=== PATIENT | female | born 1935 | race Caucasian/White ===

== ENCOUNTER 2017-08-12 11:59 | Emergency (ER) | payer MEDICARE, BC ==
[~2017-08-12] VITALS: Ht 154.9 cm; Wt 82.6 kg
[2017-08-12] MEDS ORDERED: Ketorolac 60mg Inj IM ONE (12:15)
--- NOTE | 2017-08-12 12:27 | Emergency Room Report ---
History of Present Illness General Chief Complaint: Pain Source: Patient Present Illness HPI 82-year-old female presents to the emergency department complaining of 7/10 in severity localized left hip pain progressive x3 days. Patient reports history of sciatica times several years and states that her current presentation is consistent with previous episodes of sciatica exacerbation. Patient states that she is usually treated with tramadol and an injection. Patient states that she has some time at all at home however she would like to have an injection for her pain. Patient rates her pain a 7 out of time and it is localized it does not radiate she denies weakness in the extremities she reports pain is exacerbated upon ambulation or touching the affected area. Patient denies recent spinal procedures, history of neoplastic disease, fevers, chills, trauma or fall. Denies numbness tingling or loss of sensation or gross motor movements of the extremities, incontinence of bowel or bladder. Denies CP , Palpitations, LOC, AMS, dizziness, Changes in Vision, Sensation, paresthesias , or a sudden severe headache. Allergies: Coded Allergies: No Known Allergies (Unverified , 08/12/17) Patient History Past Medical History: see triage record Past Surgical History: none Pertinent Family History: none Reviewed Nursing Documentation: PMH: Agreed, PSxH: Agreed Nursing Documentation-PMH Hx Hypertension: Yes Hx Diabetes: Yes Review of Systems All Other Systems: negative except mentioned in HPI Physical Exam Vital Signs Date Time Temp Pulse Resp B/P (MAP) Pulse Ox O2 Delivery O2 Flow Rate FiO2 08/12/17 12:03 97.9 80 18 169/76 98 Room Air Sp02 EP Interpretation: reviewed, normal General Appearance: no apparent distress, alert, GCS 15, non-toxic Head: normocephalic, atraumatic Eyes: bilateral eye normal inspection, bilateral eye PERRL ENT: hearing grossly normal, normal voice Neck: full range of motion, no meningismus, no bony tend Respiratory: lungs clear, normal breath sounds, speaking full sentences Cardiovascular #1: regular rate, rhythm Gastrointestinal: normal bowel sounds, non tender, soft, no pulsatile mass Genitourinary: normal inspection, no CVA tenderness Musculoskeletal: back normal, normal range of motion, other - pt. has mild compensatory gait favoring the left side. , tender - TTP to the upper left gluteus and left lumbar paraspinal musculature, no midline ttp, no bony ttp to the left hip. pt. has FROM of the left hip and is NVI Neurologic: alert, oriented x3, responsive, motor strength/tone normal, sensory intact, speech normal, grossly normal Reflexes: 2+ knee (R), 2+ knee (L) Skin: normal color, no rash, warm/dry, well hydrated Medical Decision Making PA Attestation Dr. Armenta is my supervising Physician whom patient management has been discussed with. Diagnostic Impression: Primary Impression: Left-sided back pain Qualified Codes: M54.5 - Low back pain; G89.29 - Other chronic pain ER Course 82-year-old female presents to the emergency department complaining of 7/10 in severity localized left hip pain progressive x3 days. Patient reports history of sciatica times several years and states that her current presentation is consistent with previous episodes of sciatica exacerbation. Patient states that she is usually treated with tramadol and an injection. Patient states that she has some time at all at home however she would like to have an injection for her pain. Patient rates her pain a 7 out of time and it is localized it does not radiate she denies weakness in the extremities she reports pain is exacerbated upon ambulation or touching the affected area. Patient denies recent spinal procedures, history of neoplastic disease, fevers, chills, trauma or fall. Denies numbness tingling or loss of sensation or gross motor movements of the extremities, incontinence of bowel or bladder. Denies CP , Palpitations, LOC, AMS, dizziness, Changes in Vision, Sensation, paresthesias , or a sudden severe headache. Ddx considered but are not limited to Fracture, dislocation, contusion, epidural abscess, Sprain/Strain/Spasm Vital signs: are WNL, pt. is afebrile H&PE are most consistent with hx of episodic sciatica exacerbation. ORDERS: X-ray not required at this time, no spinous process tenderness ED INTERVENTIONS: IM Toradol 20mg. -750mg Robaxin PO [ ] Re-Evaluation: pt. states her pain has subsided with ED interventions DISCHARGE: At this time pt. is stable for d/c to home. Will provide printed patient care instructions, and any necessary prescriptions. Care plan and follow up instructions have been discussed with the patient prior to discharge. Last Vital Signs Date Time Temp Pulse Resp B/P (MAP) Pulse Ox O2 Delivery O2 Flow Rate FiO2 12/24/17 12:03 97.9 80 18 169/76 98 Room Air Disposition: HOME, SELF-CARE Condition: Stable Scripts Lidocaine (Lidoderm) 1 Each Adh..patch 1 PATCH TOPIC DAILY, #25 PATCH 0 Refills Patch(es) may remain in place for up to 12 hours in any 24-hour period. Prov: Anastasia Maldonado 08/12/17 Methocarbamol* (ROBAXIN-750*) 750 Mg Tablet 750 MG PO QID for 7 Days, #28 TAB 0 Refills Prov: Anastasia Maldonado 08/12/17 Patient Instructions: Back Pain, Adult, Sciatica, [id number] Additional Instructions: Take medications as directed. Follow up with a Primary Care Provider in 3-5 days, even if your symptoms have resolved. --Please review list of primary care clinics, if you do not already have a primary care provider Return sooner to ED if new symptoms occur, or current symptoms become worse. Do not drink alcohol, drive, or operate heavy machinery while taking Robaxin as this may cause drowsiness. - Please note that this Emergency Department Report was dictated using [employer] fruit [employer] technology software, occasionally this can lead to erroneous entry secondary to interpretation by the dictation equipment. Anastasia Maldonado Aug 12, 2017 12:27
[2017-08-12] MEDS ORDERED: Methocarbamol 750mg tab ORAL ONE (12:30)
[2017-08-12] MEDS ORDERED: ROBAXIN-750750 MG PO (12:51)
[2017-08-12] MEDS ORDERED: LIDODERM700 M1 TOPIC (12:51)
[2017-08-12 12:59] VITALS: BP 142/80
== END 2017-08-12 12:59 | disposition home or self-care (01) ==
LOC: EMR 12:05
DX: M54.5 Low back pain (principal); G89.29 Other chronic pain; M25.552 Pain in left hip; I10 Essential (primary) hypertension; E11.9 Type 2 diabetes mellitus without complications
CPT/HCPCS: 96372; 99284

== ENCOUNTER 2017-10-04 11:14 | Inpatient (IN) | payer MEDICARE, BC ==
[~2017-10-04] VITALS: Ht 154.9 cm; Wt 82.6 kg
[~2017-10-04 11:14] MED LIST: LIDODERM700 M1 TOPIC; ROBAXIN-750750 MG PO
[2017-10-04 11:23] VITALS: BP 159/66
[2017-10-04 11:58] LABS: BASOPHILS % (AUTO) 0.4 % (0.0-2.0); EOSINOPHILS % (AUTO) 0.1 % (0.0-3.0); HEMATOCRIT 38.3 % (37.0-47.0); HEMOGLOBIN 12.3 G/DL (12.0-16.0); LYMPHOCYTES % (AUTO) 16.6 % (20.0-45.0); MEAN CORPUSCULAR VOLUME 83 FL (80-99); MONOCYTES % (AUTO) 7.4 % (1.0-10.0); NEUTROPHILS % (AUTO) 75.4 % (45.0-75.0); PLATELET COUNT 200 K/UL (150-450); RED BLOOD COUNT 4.63 M/UL (4.20-5.40); RED CELL DISTRIBUTION WIDTH 13.7 % (11.6-14.8); WHITE BLOOD COUNT 4.6 K/UL (4.8-10.8)
[2017-10-04 12:03] LABS: APPEARANCE,URINE CLOUDY; BILIRUBIN, URINE NEGATIVE (NEGATIVE); COLOR,URINE YELLOW; GLUCOSE, URINE (UA) NEGATIVE (NEGATIVE); KETONES,URINE 1+ (NEGATIVE); LEUKOCYTE ESTERASE ,URINE 2+ (NEGATIVE); NITRITE,URINE POSITIVE (NEGATIVE); PH,URINE 6 (4.5-8.0); PROTEIN,URINE 3+ (NEGATIVE); UROBILINOGEN,URINE NORMAL MG/DL (0.0-1.0)
[2017-10-04 12:05] LABS: ANION GAP 9 mmol/L (5-15); BLOOD UREA NITROGEN 10 mg/dL (7-18); CARBON DIOXIDE 26 MMOL/L (21-32); CHLORIDE 101 MMOL/L (98-107); CREATININE 1.3 MG/DL (0.55-1.30); POTASSIUM 3.7 MMOL/L (3.5-5.1); SODIUM 136 MMOL/L (136-145)
[2017-10-04 12:18] LABS: ALANINE AMINOTRANSFERASE 99 U/L (12-78); ALBUMIN 3.3 G/DL (3.4-5.0); ALBUMIN/GLOBULIN RATIO 0.8 (1.0-2.7); ALKALINE PHOSPHATASE 62 U/L (46-116); ASPARTATE AMINO TRANSFERASE 61 U/L (15-37); BILIRUBIN,TOTAL 0.3 MG/DL (0.2-1.0); CKMB < 0.5 NG/ML (0.0-3.6); CREATINE KINASE 32 U/L (26-308)
--- NOTE | 2017-10-04 13:02 | Emergency Room Report ---
History of Present Illness General Chief Complaint: Dyspnea/Respdistress Source: Patient Present Illness HPI [id number] Walk-in with 2-3 days of SOB and cough No myalgias No sick contacts Got flu vaccine, not PNA vaccine Allergies: Coded Allergies: No Known Allergies (Unverified , 08/12/17) Patient History Past Medical History: see triage record, old chart reviewed Past Surgical History: none Pertinent Family History: none Social History: Denies: smoking, alcohol use, drug use Last Menstrual Period: NA Now: No Immunizations: UTD Reviewed Nursing Documentation: PMH: Agreed, PSxH: Agreed Nursing Documentation-PMH Hx Hypertension: Yes Hx Diabetes: Yes Review of Systems All Other Systems: negative except mentioned in HPI Physical Exam Vital Signs Date Time Temp Pulse Resp B/P (MAP) Pulse Ox O2 Delivery O2 Flow Rate FiO2 10/04/17 11:20 98.9 74 19 159/66 98 Room Air 99.0 Sp02 EP Interpretation: reviewed, normal General Appearance: normal inspection, well appearing, no apparent distress, alert, GCS 15, non-toxic Head: normocephalic, atraumatic Eyes: bilateral eye PERRL, bilateral eye EOMI ENT: normal ENT inspection, hearing grossly normal, normal pharynx, no angioedema, normal voice, TMs + canals normal, uvula midline, moist mucus membranes Neck: normal inspection, full range of motion, supple, thyroid normal, no meningismus, no bony tend Respiratory: normal inspection, no respiratory distress, no retraction, no accessory muscle use, rhonchi, speaking full sentences, other - Rhonchi left side of lungs Cardiovascular #1: regular rate, rhythm, no edema, no JVD, normal capillary refill Gastrointestinal: normal inspection, normal bowel sounds, non tender, soft, no mass, no peritonitis, non-distended, no guarding, no hernia, no pulsatile mass Genitourinary: no CVA tenderness Musculoskeletal: normal inspection, back normal, normal range of motion, no calf tenderness, pelvis stable, Vandana's Sign negative Neurologic: normal inspection, alert, oriented x3, responsive, combination machine tool setter III-XII nml as tested, motor strength/tone normal, cerebellar normal, normal gait, speech normal Psychiatric: normal inspection, judgement/insight normal, mood/affect normal, no suicidal/homicidal ideation, no delusions Skin: normal inspection, normal color, no rash Lymphatic: normal inspection, no adenopathy Medical Decision Making Diagnostic Impression: Primary Impression: SOB (shortness of breath) Additional Impressions: Pneumonia Qualified Codes: J18.9 - Pneumonia, unspecified organism UTI (urinary tract infection) Qualified Codes: N30.01 - Acute cystitis with hematuria Elevated troponin ER Course Clinical PNA with cough, rhonchi on exam however CXR negative for PNA Nitrite Positive UTI Blood, Urine Cx pending Empiric Levaquin given in ED Elevated trop 0.074. Will give ASA as well Needs admission for ?PNA/UTI, ACS rule out Endorsed to Dr Mues covering for Darrion at 100pm Tele bed EKG Diagnostic Results Rate: normal Rhythm: NSR ST Segments: no acute changes ASA given to the pt in ED: No Rhythm Strip Diag. Results EP Interpretation: yes Rate: 68 Rhythm: NSR, no PVC's, no ectopy Chest X-Ray Diagnostic Results Chest X-Ray Diagnostic Results : Chest X-Ray Ordered: Yes # of Views/Limited/Complete: 1 View Indication: Shortness of Breath EP Interpretation: Yes Interpretation: no consolidation, no effusion, no pneumothorax, no acute cardiopulmonary disease Impression: No acute disease Electronically Signed by: Dr Weston Teresa MD Last Vital Signs Date Time Temp Pulse Resp B/P (MAP) Pulse Ox O2 Delivery O2 Flow Rate FiO2 10/04/17 11:24 73 19 Room Air 10/04/17 11:23 98.9 159/66 98 98.9 Status: improved Disposition: ADMITTED INPATIENT Condition: Serious Referrals: DAPHNE COTA (PCP) WESTON TERESA M.D. Oct 04, 2017 13:01
--- NOTE | 2017-10-04 13:03 | Diagnostic Imaging Report ---
Indication: Dyspnea Comparison: None A single view chest radiograph was obtained. Findings: No definite infiltrate or pulmonary vascular congestion identified. The heart is enlarged. The aorta is mildly enlarged consistent with atherosclerotic vascular disease. The bones are osteopenic. Impression: No acute disease
[2017-10-04 13:30] VITALS: BP 158/64
--- NOTE | 2017-10-04 14:12 | History and Physical ---
History of Present Illness General Date patient seen: Oct 04, 2017 Reason for Hospitalization: Dyspnea/Respdistress Present Illness HPI 82 yo female with pmhx HTN, DM II, and dyslipidemia presents to [facility] with complaint of severe purulent cough and chest discomfort. Patient has been given supplemental oxygen and a cardiology consultation has been requested to evaluate. The patient also started on empiric broad spectrum antibiotics for her purulent cough and bacteria collected in the urine. No complaint of shortness of breath or chest pain. No recent illness reported or focality. Allergies: Coded Allergies: No Known Allergies (Unverified , 08/12/17) Medication History Scheduled Albuterol Sulfate* (Proair Hfa*), 1 PUFF INH Q6H Amiodarone Hcl* (Amiodarone Hcl*), 200 MG ORAL DAILY, (Reported) Amlodipine Besylate* (Amlodipine Besylate*), 5 MG ORAL DAILY, (Reported) Apixaban (Eliquis), 5 MG ORAL BID, (Reported) Benzonatate* (Benzonatate*), 100 MG ORAL THREE TIMES A DAY Budesonide/Formoterol Fumarate (Symbicort 160-4.5 Mcg Inhaler), 1 PUFF INH TWICE A DAY Levofloxacin* (Levaquin*), 250 MG ORAL DAILY Lidocaine (Lidoderm), 1 PATCH TOPIC DAILY Metformin Hcl* (Metformin Hcl*), 500 MG ORAL DAILY, (Reported) Methocarbamol* (Robaxin-750*), 750 MG PO QID Rosuvastatin Calcium* (Crestor*), 5 MG ORAL DAILY, (Reported) Sitagliptin Phos/Metformin Hcl (Janumet 50-500 Mg Tablet), 1 TAB ORAL DAILY, ( Reported) Scheduled PRN Gabapentin* (Gabapentin*), 100 MG ORAL THREE TIMES A DAY PRN for For Pain, ( Reported) Tramadol Hcl* (Ultram*), 50 MG ORAL Q6H PRN for For Pain, (Reported) Patient History Healthcare decision maker Resuscitation status Advanced Directive on File Review of Systems Constitutional: Reports: malaise, weakness Respiratory: Reports: cough, shortness of breath, wheezing, sputum Cardiovascular: Reports: chest pain Physical Exam General Appearance: moderate distress Lines, tubes and drains: peripheral HEENT: normocephalic, atraumatic, anicteric, PERRL Neck: non-tender, normal alignment, supple, normal inspection Respiratory/Chest: chest wall non-tender, decreased breath sounds, rhonchi - bilaterally Breasts: no masses Cardiovascular/Chest: normal peripheral pulses, normal rate, regular rhythm, no JVD Abdomen: normal bowel sounds, non tender, soft, no organomegaly, no mass Genitourinary/Rectal: normal genital exam, normal rectal exam Extremities: normal range of motion, non-tender, normal inspection, no calf tenderness Skin Exam: normal pigmentation, warm/dry Neurologic: healthcare specialist II-XII grossly normal, no motor/sensory deficits Last 24 Hour Vital Signs Date Time Temp Pulse Resp B/P (MAP) Pulse Ox O2 Delivery O2 Flow Rate FiO2 10/04/17 11:24 73 19 Room Air 10/04/17 11:23 98.9 73 19 159/66 98 Room Air 98.9 10/04/17 11:20 98.9 74 19 159/66 98 Room Air 99.0 Laboratory Tests Test 10/04/17 11:10 10/04/17 11:37 Urine Color Yellow Urine Appearance Cloudy Urine pH 6 (4.5-8.0) Urine Specific [place] 1.010 (1.005-1.035) Urine Protein 3+ (NEGATIVE) H Urine Glucose (UA) Negative (NEGATIVE) Urine Ketones 1+ (NEGATIVE) H Urine Occult Blood 2+ (NEGATIVE) H Urine Nitrite Positive (NEGATIVE) H Urine Bilirubin Negative (NEGATIVE) Urine Urobilinogen Normal MG/DL (0.0-1.0) Urine Leukocyte Esterase 2+ (NEGATIVE) H Urine RBC 2-4 /HPF (0 - 2) H Urine WBC 5-10 /HPF (0 - 2) H Urine Squamous Epithelial Cells Few /LPF (NONE/OCC) Urine Bacteria Many /HPF (NONE) H White Blood Count 4.6 K/UL (4.8-10.8) L Red Blood Count 4.63 M/UL (4.20-5.40) Hemoglobin 12.3 G/DL (12.0-16.0) Hematocrit 38.3 % (37.0-47.0) Mean Corpuscular Volume 83 FL (80-99) Mean Corpuscular Hemoglobin 26.6 PG (27.0-31.0) L Mean Corpuscular Hemoglobin Concent 32.1 G/DL (32.0-36.0) Red Cell Distribution Width 13.7 % (11.6-14.8) Platelet Count 200 K/UL (150-450) Mean Platelet Volume 7.9 FL (6.5-10.1) Neutrophils (%) (Auto) 75.4 % (45.0-75.0) H Lymphocytes (%) (Auto) 16.6 % (20.0-45.0) L Monocytes (%) (Auto) 7.4 % (1.0-10.0) Eosinophils (%) (Auto) 0.1 % (0.0-3.0) Basophils (%) (Auto) 0.4 % (0.0-2.0) Sodium Level 136 MMOL/L (136-145) Potassium Level 3.7 MMOL/L (3.5-5.1) Chloride Level 101 MMOL/L (98-107) Carbon Dioxide Level 26 MMOL/L (21-32) Anion Gap 9 mmol/L (5-15) Blood Urea Nitrogen 10 mg/dL (7-18) Creatinine 1.3 MG/DL (0.55-1.30) Estimat Glomerular Filtration Rate mL/min (>60) Glucose Level 157 MG/DL (74-106) H Calcium Level 9.0 MG/DL (8.5-10.1) Total Bilirubin 0.3 MG/DL (0.2-1.0) Aspartate Amino Transf (AST/SGOT) 61 U/L (15-37) H Alanine Aminotransferase (ALT/SGPT) 99 U/L (12-78) H Alkaline Phosphatase 62 U/L (46-116) Total Creatine Kinase 32 U/L (26-308) Creatine Kinase MB < 0.5 NG/ML (0.0-3.6) Creatine Kinase MB Relative Index 1.5 Troponin I 0.074 ng/mL (0.000-0.056) Total Protein 7.7 G/DL (6.4-8.2) Albumin 3.3 G/DL (3.4-5.0) L Globulin 4.4 g/dL Albumin/Globulin Ratio 0.8 (1.0-2.7) L Microbiology Date/Time Source Procedure Growth Status 10/04/17 11:40 Nasal Nares Influenza Types A,B Antigen (BRANDY) - Final Complete Height (Feet): 5 Height (Inches): 1.00 Weight (Pounds): 182 Medications Current Medications Medications (Trade) Dose Ordered Sig/Esa Route PRN Reason Start Time Stop Time Status Last Admin Dose Admin Aspirin (Ecotrin) 325 mg DAILY ORAL 10/05/17 09:00 11/04/17 08:59 Levofloxacin 150 ml @ 100 mls/hr NOW ONCE IVPB 10/04/17 12:45 10/04/17 14:14 10/04/17 13:45 Assessment/Plan Status: stable, progressing Assessment/Plan Acute bronchitis Chest discomfort rule out ACS Urinary tract infection with bacteriuria DM HTN History of paroxysmal atrial fibrillation PLAN Oxygenation supplemental titrate FiO2 up maintain O2 sat above 92 % Nitroglycerine as needed for CP ASA Morphine as needed for CP Cardiology requested to consult Empiric abx, Influenza screening ID follows Antitussive prn Lipid panel and TSH BEBETO MEJIA Oct 04, 2017 14:12
[2017-10-04] MEDS ORDERED: dilTIAZem HCl 25mg/5ml Inj IV PRN (14:15)
[2017-10-04] MEDS ORDERED: Enalaprilat 2.5mg/2ml Inj IV PRN (14:15)
[2017-10-04] MEDS ORDERED: Ketorolac 30mg Inj IV PRN (14:15)
[2017-10-04] MEDS ORDERED: Albuterol/Ipratropium 3ml neb HHN PRN (14:15)
[2017-10-04] MEDS ORDERED: Morphine Sulfate 2mg/ml Inj IVP PRN (14:15)
[2017-10-04] MEDS ORDERED: Nitroglycerin Subl 0.4mg tab SL PRN (14:15)
[2017-10-04] MEDS ORDERED: Miralax 17gm pkt ORAL PRN (14:15)
[2017-10-04] MEDS ORDERED: Promethazine/Codeine 5ml UD ORAL PRN (14:15)
[2017-10-04] MEDS ORDERED: AMLODIPINE BESYL5 MG ORAL (14:33)
[2017-10-04] MEDS ORDERED: AMIODARONE HCL400 M1 ORAL (14:33)
[2017-10-04] MEDS ORDERED: ELIQUIS5 MG ORAL (14:33)
[2017-10-04] MEDS ORDERED: METFORMIN HCL500 M1 ORAL (14:35)
[2017-10-04] MEDS ORDERED: GABAPENTIN100 MG ORAL (14:35)
[2017-10-04] MEDS ORDERED: CRESTOR10 M2 ORAL (14:35)
[2017-10-04] MEDS ORDERED: TRAMADOL HCL50 MG ORAL (14:35)
[2017-10-04] MEDS ORDERED: JANUMET 50-5001 EACH ORAL (14:35)
[2017-10-04 15:30] VITALS: BP 129/104
[2017-10-04 16:29] VITALS: BP 137/94
[2017-10-04] MEDS ORDERED: Methocarbamol 750mg tab ORAL PRN (18:00)
[2017-10-04 19:30] VITALS: BP 164/73
[2017-10-04] MEDS: Heparin 5000 units/ml inj SUBQ SCH (21:00)
[2017-10-04] MEDS: Piperacillin/Tazobactam 3.375 GM in NS 110 ML IVPB SCH (22:54)
[2017-10-05] VITALS: BP 121/78
[2017-10-05 04:00] VITALS: BP 132/79
[2017-10-05] MEDS: Piperacillin/Tazobactam 3.375 GM in NS 110 ML IVPB SCH (05:56)
[2017-10-05 07:02] LABS: INR 1.1 (0.9-1.1)
[2017-10-05 07:09] LABS: CHOLESTEROL 129 MG/DL (< 200); HDL CHOLESTEROL 46 MG/DL (40-60); TRIGLYCERIDES 130 MG/DL (30-150)
[2017-10-05 07:29] LABS: BASOPHILS % (AUTO) 0.6 % (0.0-2.0); EOSINOPHILS % (AUTO) 0.3 % (0.0-3.0); HEMATOCRIT 36.7 % (37.0-47.0); LYMPHOCYTES % (AUTO) 36.8 % (20.0-45.0); MEAN CORPUSCULAR VOLUME 83 FL (80-99); MONOCYTES % (AUTO) 13.1 % (1.0-10.0); NEUTROPHILS % (AUTO) 49.2 % (45.0-75.0); PLATELET COUNT 203 K/UL (150-450); RED BLOOD COUNT 4.41 M/UL (4.20-5.40); RED CELL DISTRIBUTION WIDTH 13.8 % (11.6-14.8); WHITE BLOOD COUNT 4.3 K/UL (4.8-10.8)
[2017-10-05 08:00] VITALS: BP 160/68
--- NOTE | 2017-10-05 08:22 | Pulmonology Progress Note ---
Assessment/Plan Assessment/Plan ASSESSMENT Elevated troponin, r/o ACS Acute bronchitis UTI with GNB DM HTN elevated LFT PAF PLAN OF CARE Tele serial troponin ECG ECHO cardio eval ASA O2 HHN ATC and prn Fup with CXR in am empiric abx, fup with cx ID follows urine cx + GNB a/tussive prn BP management with CCB and optimize as needed BS management with Januviz, hold metformin creat slightly up DVT prophylaxis lipid panel and TSH stable , check HgA1c Currently in SR,resume a/c with Eliquis and Amiodarone case discussed and evaluated by supervising physician Subjective Allergies: Coded Allergies: No Known Allergies (Unverified , 08/12/17) Subjective afebrile, no leucocytosis, reports cough, mainly nonproductive, no wheezing, no hemoptysis no hx of asthma,no smoking similar episode x 1 few years ago ; was in inhaler and nasal spray , helped denies chest pain, shortness of breath on RA pulse ox stable Objective Last 24 Hour Vital Signs Date Time Temp Pulse Resp B/P (MAP) Pulse Ox O2 Delivery O2 Flow Rate FiO2 10/05/17 04:00 98.1 77 19 132/79 97 Room Air 10/05/17 04:00 62 10/05/17 00:00 57 10/05/17 00:00 97.7 73 18 121/78 96 Room Air 10/04/17 19:57 66 18 164/73 98 Room Air 10/04/17 19:30 66 18 164/73 98 Room Air 10/04/17 16:29 63 15 137/94 96 Room Air 10/04/17 15:30 70 19 129/104 96 Room Air 10/04/17 13:30 68 19 158/64 96 Room Air 10/04/17 11:24 73 19 Room Air 10/04/17 11:23 98.9 73 19 159/66 98 Room Air 98.9 10/04/17 11:20 98.9 74 19 159/66 98 Room Air 99.0 Intake and Output 10/04/17 10/05/17 19:00 07:00 Intake Total 150 ml 30 ml Output Total 400 ml Balance 150 ml -370 ml Intake Oral 30 ml IV Total 150 ml Output Urine Total 400 ml General Appearance: no acute distress, other - A/A/O x 4 Uzbek speaking elderly female in NAD HEENT: normocephalic, atraumatic, anicteric, mucous membranes moist Respiratory/Chest: lungs clear, no respiratory distress, no accessory muscle use Cardiovascular: normal rate - SR on tele , regular rhythm Abdomen: normal bowel sounds, soft, non tender - obese Extremities: no edema Skin: rash Neurologic/Psychiatric: no motor/sensory deficits, alert, oriented x 3, responsive Musculoskeletal: normal muscle bulk Microbiology Date/Time Source Procedure Growth Status 10/04/17 11:40 Nasal Nares Influenza Types A,B Antigen (BRANDY) - Final Complete Laboratory Tests 10/04/17 11:10: Urine Color Yellow, Urine Appearance Cloudy, Urine pH 6, Urine Specific [place] 1.010, Urine Protein 3+H, Urine Glucose (UA) Negative, Urine Ketones 1+H, Urine Occult Blood 2+H, Urine Nitrite PositiveH, Urine Bilirubin Negative, Urine Urobilinogen Normal, Urine Leukocyte Esterase 2+H, Urine RBC 2-4H, Urine WBC 5- 10H, Urine Squamous Epithelial Cells Few, Urine Bacteria ManyH 10/04/17 11:37: White Blood Count 4.6L, Red Blood Count 4.63, Hemoglobin 12.3, Hematocrit 38.3, Mean Corpuscular Volume 83, Mean Corpuscular Hemoglobin 26.6L, Mean Corpuscular Hemoglobin Concent 32.1, Red Cell Distribution Width 13.7, Platelet Count 200, Mean Platelet Volume 7.9, Neutrophils (%) (Auto) 75.4H, Lymphocytes (%) (Auto) 16.6L, Monocytes (%) (Auto) 7.4, Eosinophils (%) (Auto) 0.1, Basophils (%) (Auto ) 0.4, Sodium Level 136, Potassium Level 3.7, Chloride Level 101, Carbon Dioxide Level 26, Anion Gap 9, Blood Urea Nitrogen 10, Creatinine 1.3, Estimat Glomerular Filtration Rate , Glucose Level 157H, Calcium Level 9.0, Total Bilirubin 0.3, Aspartate Amino Transf (AST/SGOT) 61H, Alanine Aminotransferase ( ALT/SGPT) 99H, Alkaline Phosphatase 62, Total Creatine Kinase 32, Creatine Kinase MB < 0.5, Creatine Kinase MB Relative Index 1.5, Troponin I 0.074H, Total Protein 7.7, Albumin 3.3L, Globulin 4.4, Albumin/Globulin Ratio 0.8L 10/05/17 06:15: White Blood Count 4.3L, Red Blood Count 4.41, Hemoglobin 12.0, Hematocrit 36.7L , Mean Corpuscular Volume 83, Mean Corpuscular Hemoglobin 27.2, Mean Corpuscular Hemoglobin Concent 32.6, Red Cell Distribution Width 13.8, Platelet Count 203, Mean Platelet Volume 7.5, Neutrophils (%) (Auto) 49.2, Lymphocytes (% ) (Auto) 36.8, Monocytes (%) (Auto) 13.1H, Eosinophils (%) (Auto) 0.3, Basophils (%) (Auto) 0.6, Troponin I 0.094H, Prothrombin Time 11.2, Prothromb Time International Ratio 1.1, Activated Partial Thromboplast Time 33, C- Reactive Protein, Quantitative 1.3H, Triglycerides Level 130, Cholesterol Level 129, LDL Cholesterol 73, HDL Cholesterol 46, Cholesterol/HDL Ratio 2.8L, Thyroid Stimulating Hormone (TSH) 1.503 Current Medications Medications (Trade) Dose Ordered Sig/Esa Route PRN Reason Start Time Stop Time Status Last Admin Dose Admin Acetaminophen (Tylenol) 650 mg Q4H PRN ORAL fever (temp>100.5F) 10/04/17 14:15 11/03/17 14:14 Albuterol/ Ipratropium (Albuterol/ Ipratropium) 3 ml Q4H PRN HHN Shortness of Breath 10/04/17 14:15 10/09/17 14:14 Amlodipine Besylate (Norvasc) 5 mg DAILY ORAL 10/05/17 09:00 11/04/17 08:59 Aspirin (ASA) 162 mg DAILY ORAL 10/05/17 09:00 11/04/17 08:59 Aspirin (Ecotrin) 325 mg DAILY ORAL 10/05/17 09:00 11/04/17 08:59 Diltiazem HCl (Cardizem) 10 mg EVERY HOUR PRN IV heart rate more than 120 bpm 10/04/17 14:15 11/03/17 14:14 Enalaprilat (Vasotec) 2.5 mg Q5H PRN IV sbp more than 160 mmHg 10/04/17 14:15 11/03/17 14:14 Heparin Sodium (Porcine) (Heparin 5000 units/ml) 5,000 units EVERY 12 HOURS SUBQ 10/04/17 21:00 11/03/17 20:59 Metformin HCl (Glucophage) 500 mg DAILY ORAL 10/05/17 09:00 11/04/17 08:59 Methocarbamol (Robaxin) 750 mg Q6H PRN ORAL Muscle spasms 10/04/17 18:00 11/03/17 17:59 Morphine Sulfate (Morphine Sulfate) 2 mg Q4H PRN IVP severe Pain (Pain Scale 7-10) 10/04/17 14:15 10/11/17 14:14 Nitroglycerin (Ntg) 0.4 mg Q5M PRN SL Prn Chest Pain 10/04/17 14:15 11/03/17 14:14 Ondansetron HCl (Zofran) 4 mg Q6H PRN IVP Nausea & Vomiting 10/04/17 14:15 11/03/17 14:14 Piperacillin Sod/ Tazobactam Sod 3.375 gm/Sodium Chloride 110 ml @ 220 mls/hr EVERY 8 HOURS IVPB 10/04/17 20:00 10/11/17 19:59 10/05/17 05:56 Polyethylene Glycol (Miralax) 17 gm DAILYPRN PRN ORAL Constipation 10/04/17 14:15 11/03/17 14:14 10/05/17 05:56 Promethazine HCl/ Codeine (Phenergan with Codeine) 5 ml Q4H PRN ORAL For Cough 10/04/17 14:15 11/03/17 14:14 Temazepam (Restoril) 15 mg HSPRN PRN ORAL Insomnia 10/04/17 14:15 10/11/17 14:14 10/04/17 22:53 Rashi WestPeace vale NP Oct 05, 2017 08:22
[2017-10-05] MEDS ORDERED: Aspirin EC 325mg tab ORAL SCH (09:00)
[2017-10-05] MEDS ORDERED: metFORMIN 500mg tab ORAL SCH (09:00)
[2017-10-05] MEDS: Heparin 5000 units/ml inj SUBQ SCH (09:00)
[2017-10-05] MEDS: Aspirin Baby 81mg ORAL SCH (09:20)
[2017-10-05] MEDS ORDERED: Albuterol/Ipratropium 3ml neb HHN SCH (10:00)
[2017-10-05] MEDS ORDERED: sitaGLIPtin 50mg tab ORAL SCH (10:00)
--- NOTE | 2017-10-05 10:21 | Consultation ---
History of Present Illness General Date patient seen: Oct 05, 2017 Time patient seen: 10:17 Chief Complaint: Dyspnea/Respdistress Present Illness HPI 82 y/o F with hx of HTN, DM2 presents to ED on 10/04 with 3 weeks of worsening SOB and dry cough. Took a course of Z-pack. One episode of fever of 38.8 last week. Denies sick contacts, myalgias, runny nose, rash, dysuria, pelvic pain. + urinary frequency but this is normal for her and has not changed. Of note reports, receiving Flu shot this season Allergies: Coded Allergies: No Known Allergies (Unverified , 08/12/17) Medication History Scheduled Amiodarone Hcl* (Amiodarone Hcl*), 200 MG ORAL DAILY, (Reported) Amlodipine Besylate* (Amlodipine Besylate*), 5 MG ORAL DAILY, (Reported) Apixaban (Eliquis), 5 MG ORAL BID, (Reported) Lidocaine (Lidoderm), 1 PATCH TOPIC DAILY Metformin Hcl* (Metformin Hcl*), 500 MG ORAL DAILY, (Reported) Methocarbamol* (Robaxin-750*), 750 MG PO QID Rosuvastatin Calcium* (Crestor*), 5 MG ORAL DAILY, (Reported) Sitagliptin Phos/Metformin Hcl (Janumet 50-500 Mg Tablet), 1 TAB ORAL DAILY, ( Reported) Scheduled PRN Gabapentin* (Gabapentin*), 100 MG ORAL THREE TIMES A DAY PRN for For Pain, ( Reported) Tramadol Hcl* (Ultram*), 50 MG ORAL Q6H PRN for For Pain, (Reported) Patient History Healthcare decision maker N Resuscitation status Full Code Advanced Directive on File No Patient History Narrative PMhx: as above Shx: Denies: smoking, alcohol use, drug use Fhx: non contributory Review of Systems All Other Systems: negative except mentioned in HPI Physical Exam Physical Exam Narrative General Appearance: normal inspection, well appearing, no apparent distress, alert, GCS 15, non-toxic Head: normocephalic, atraumatic Eyes: bilateral eye PERRL, bilateral eye EOMI ENT: normal ENT inspection, hearing grossly normal, normal pharynx, no angioedema, normal voice, TMs + canals normal, uvula midline, moist mucus membranes Neck: normal inspection, full range of motion, supple, thyroid normal, no meningismus, no bony tend Respiratory: normal inspection, no respiratory distress, no retraction, no accessory muscle use, rhonchi, speaking full sentences, other - Rhonchi left side of lungs Cardiovascular #1: regular rate, rhythm, no edema, no JVD, normal capillary refill Gastrointestinal: normal inspection, normal bowel sounds, non tender, soft, no mass, no peritonitis, non-distended, no guarding, no hernia, no pulsatile mass Genitourinary: no CVA tenderness Musculoskeletal: normal inspection, back normal, normal range of motion, no calf tenderness, pelvis stable, Vandana's Sign negative Neurologic: normal inspection, alert, oriented x3, responsive, statue carver III-XII nml as tested, motor strength/tone normal, cerebellar normal, normal gait, speech normal Psychiatric: normal inspection, judgement/insight normal, mood/affect normal, no suicidal/homicidal ideation, no delusions Skin: normal inspection, normal color, no rash Lymphatic: normal inspection, no adenopathy Last 24 Hour Vital Signs Date Time Temp Pulse Resp B/P (MAP) Pulse Ox O2 Delivery O2 Flow Rate FiO2 10/05/17 09:21 75 160/68 10/05/17 08:00 97.7 75 20 160/68 95 Room Air 10/05/17 04:00 98.1 77 19 132/79 97 Room Air 10/05/17 04:00 62 10/05/17 00:00 57 10/05/17 00:00 97.7 73 18 121/78 96 Room Air 10/04/17 19:57 66 18 164/73 98 Room Air 10/04/17 19:30 66 18 164/73 98 Room Air 10/04/17 16:29 63 15 137/94 96 Room Air 10/04/17 15:30 70 19 129/104 96 Room Air 10/04/17 13:30 68 19 158/64 96 Room Air 10/04/17 11:24 73 19 Room Air 10/04/17 11:23 98.9 73 19 159/66 98 Room Air 98.9 10/04/17 11:20 98.9 74 19 159/66 98 Room Air 99.0 Intake and Output 10/04/17 10/05/17 19:00 07:00 Intake Total 150 ml 30 ml Output Total 400 ml Balance 150 ml -370 ml Intake Oral 30 ml IV Total 150 ml Output Urine Total 400 ml Laboratory Tests Test 10/04/17 11:10 10/04/17 11:37 10/05/17 06:15 Urine Color Yellow Urine Appearance Cloudy Urine pH 6 (4.5-8.0) Urine Specific [place] 1.010 (1.005-1.035) Urine Protein 3+ (NEGATIVE) H Urine Glucose (UA) Negative (NEGATIVE) Urine Ketones 1+ (NEGATIVE) H Urine Occult Blood 2+ (NEGATIVE) H Urine Nitrite Positive (NEGATIVE) H Urine Bilirubin Negative (NEGATIVE) Urine Urobilinogen Normal MG/DL (0.0-1.0) Urine Leukocyte Esterase 2+ (NEGATIVE) H Urine RBC 2-4 /HPF (0 - 2) H Urine WBC 5-10 /HPF (0 - 2) H Urine Squamous Epithelial Cells Few /LPF (NONE/OCC) Urine Bacteria Many /HPF (NONE) H White Blood Count 4.6 K/UL (4.8-10.8) L 4.3 K/UL (4.8-10.8) L Red Blood Count 4.63 M/UL (4.20-5.40) 4.41 M/UL (4.20-5.40) Hemoglobin 12.3 G/DL (12.0-16.0) 12.0 G/DL (12.0-16.0) Hematocrit 38.3 % (37.0-47.0) 36.7 % (37.0-47.0) L Mean Corpuscular Volume 83 FL (80-99) 83 FL (80-99) Mean Corpuscular Hemoglobin 26.6 PG (27.0-31.0) L 27.2 PG (27.0-31.0) Mean Corpuscular Hemoglobin Concent 32.1 G/DL (32.0-36.0) 32.6 G/DL (32.0-36.0) Red Cell Distribution Width 13.7 % (11.6-14.8) 13.8 % (11.6-14.8) Platelet Count 200 K/UL (150-450) 203 K/UL (150-450) Mean Platelet Volume 7.9 FL (6.5-10.1) 7.5 FL (6.5-10.1) Neutrophils (%) (Auto) 75.4 % (45.0-75.0) H 49.2 % (45.0-75.0) Lymphocytes (%) (Auto) 16.6 % (20.0-45.0) L 36.8 % (20.0-45.0) Monocytes (%) (Auto) 7.4 % (1.0-10.0) 13.1 % (1.0-10.0) H Eosinophils (%) (Auto) 0.1 % (0.0-3.0) 0.3 % (0.0-3.0) Basophils (%) (Auto) 0.4 % (0.0-2.0) 0.6 % (0.0-2.0) Sodium Level 136 MMOL/L (136-145) Potassium Level 3.7 MMOL/L (3.5-5.1) Chloride Level 101 MMOL/L (98-107) Carbon Dioxide Level 26 MMOL/L (21-32) Anion Gap 9 mmol/L (5-15) Blood Urea Nitrogen 10 mg/dL (7-18) Creatinine 1.3 MG/DL (0.55-1.30) Estimat Glomerular Filtration Rate mL/min (>60) Glucose Level 157 MG/DL (74-106) H Calcium Level 9.0 MG/DL (8.5-10.1) Total Bilirubin 0.3 MG/DL (0.2-1.0) Aspartate Amino Transf (AST/SGOT) 61 U/L (15-37) H Alanine Aminotransferase (ALT/SGPT) 99 U/L (12-78) H Alkaline Phosphatase 62 U/L (46-116) Total Creatine Kinase 32 U/L (26-308) Creatine Kinase MB < 0.5 NG/ML (0.0-3.6) Creatine Kinase MB Relative Index 1.5 Troponin I 0.074 ng/mL (0.000-0.056) 0.094 ng/mL (0.000-0.056) Total Protein 7.7 G/DL (6.4-8.2) Albumin 3.3 G/DL (3.4-5.0) L Globulin 4.4 g/dL Albumin/Globulin Ratio 0.8 (1.0-2.7) L Prothrombin Time 11.2 SEC (9.30-11.50) Prothromb Time International Ratio 1.1 (0.9-1.1) Activated Partial Thromboplast Time 33 SEC (23-33) C-Reactive Protein, Quantitative 1.3 mg/dL (0.00-0.90) H Triglycerides Level 130 MG/DL (30-150) Cholesterol Level 129 MG/DL (< 200) LDL Cholesterol 73 mg/dL (<100) HDL Cholesterol 46 MG/DL (40-60) Cholesterol/HDL Ratio 2.8 (3.3-4.4) L Thyroid Stimulating Hormone (TSH) 1.503 uiU/mL (0.358-3.740) Microbiology Date/Time Source Procedure Growth Status 10/04/17 11:40 Nasal Nares Influenza Types A,B Antigen (BRANDY) - Final Complete 10/04/17 11:10 Urine,Clean Catch Urine Culture - Preliminary Gram Negative Bacillus 1 Resulted Height (Feet): 5 Height (Inches): 1.00 Weight (Pounds): 182 Medications Current Medications Medications (Trade) Dose Ordered Sig/Esa Route PRN Reason Start Time Stop Time Status Last Admin Dose Admin Acetaminophen (Tylenol) 650 mg Q4H PRN ORAL fever (temp>100.5F) 10/04/17 14:15 11/03/17 14:14 Albuterol/ Ipratropium (Albuterol/ Ipratropium) 3 ml Q4H PRN HHN Shortness of Breath 10/04/17 14:15 10/09/17 14:14 Albuterol/ Ipratropium (Albuterol/ Ipratropium) 3 ml TIDRT HHN 10/05/17 10:00 10/10/17 09:59 Amiodarone HCl (Cordarone) 200 mg DAILY ORAL 10/05/17 10:00 11/04/17 09:59 Amlodipine Besylate (Norvasc) 5 mg DAILY ORAL 10/05/17 09:00 11/04/17 08:59 10/05/17 09:21 Apixaban (Eliquis) 5 mg BID ORAL 10/05/17 10:00 11/04/17 09:59 Aspirin (ASA) 162 mg DAILY ORAL 10/05/17 09:00 11/04/17 08:59 10/05/17 09:20 Diltiazem HCl (Cardizem) 10 mg EVERY HOUR PRN IV heart rate more than 120 bpm 10/04/17 14:15 11/03/17 14:14 Enalaprilat (Vasotec) 2.5 mg Q5H PRN IV sbp more than 160 mmHg 10/04/17 14:15 11/03/17 14:14 Metformin HCl (Glucophage) 500 mg DAILY ORAL 10/05/17 09:00 11/04/17 08:59 10/05/17 09:21 Methocarbamol (Robaxin) 750 mg Q6H PRN ORAL Muscle spasms 10/04/17 18:00 11/03/17 17:59 Morphine Sulfate (Morphine Sulfate) 2 mg Q4H PRN IVP severe Pain (Pain Scale 7-10) 10/04/17 14:15 10/11/17 14:14 Nitroglycerin (Ntg) 0.4 mg Q5M PRN SL Prn Chest Pain 10/04/17 14:15 11/03/17 14:14 Ondansetron HCl (Zofran) 4 mg Q6H PRN IVP Nausea & Vomiting 10/04/17 14:15 11/03/17 14:14 Piperacillin Sod/ Tazobactam Sod 3.375 gm/Sodium Chloride 110 ml @ 220 mls/hr EVERY 8 HOURS IVPB 10/04/17 20:00 10/11/17 19:59 10/05/17 05:56 Polyethylene Glycol (Miralax) 17 gm DAILYPRN PRN ORAL Constipation 10/04/17 14:15 11/03/17 14:14 10/05/17 05:56 Promethazine HCl/ Codeine (Phenergan with Codeine) 5 ml Q4H PRN ORAL For Cough 10/04/17 14:15 11/03/17 14:14 10/05/17 09:25 Sitagliptin Phosphate (Januvia) 50 mg ACBREAKFAST ORAL 10/05/17 10:00 11/04/17 09:59 Temazepam (Restoril) 15 mg HSPRN PRN ORAL Insomnia 10/04/17 14:15 10/11/17 14:14 10/04/17 22:53 Assessment/Plan Assessment/Plan Abx: Zosyn 10/04- LEvaquin x1 10/04 Assessment: Acute bronchitis -CXR: No acute disease -Influenza neg pyuria/bacteriuria- asymptomatic -u/a wbc 5-10, nit +, leuk +2' ucx >100K GNR Afebrile, no leukocytosis Troponinemia HTN Dm2 Plan: -Switch Zosyn #2/5 to PO Levaquin -10/04 SP Levaquin x1 -f/u cx -Monitor CBC/BMP, temperatures -resp support Thank you for this consultation. Will continue to follow along with you. Discussed with DANIELA. Basilia Mcgee M.D. Oct 05, 2017 10:21
[2017-10-05] MEDS ORDERED: Morphine Sulfate 4mg/ml Inj IVP PRN (11:00)
[2017-10-05] MEDS: Amiodarone 200mg tab ORAL SCH (11:03)
[2017-10-05] MEDS: sitaGLIPtin 25mg tab ORAL SCH (11:03)
[2017-10-05] MEDS: Eliquis 2.5mg tablet ORAL SCH ×2 (11:03→17:59)
[2017-10-05 12:00] VITALS: BP 129/68
[2017-10-05] MEDS: Benzonatate 100mg Perles ORAL SCH ×2 (13:32→17:59)
[2017-10-05] MEDS: Levofloxacin 500mg tab ORAL SCH (13:32)
--- NOTE | 2017-10-05 14:24 | Cardiology Report ---
APPROVED REPORT EKG Measurement Heart [id number] ID [id number] Normal sinus rhythm Left axis deviation Abnormal ECG
[2017-10-05] MEDS: Albuterol/Ipratropium 3ml neb HHN SCH ×2 (15:59→19:01)
[2017-10-05 16:00] VITALS: BP 133/68
[2017-10-05 20:00] VITALS: BP 148/70
--- NOTE | 2017-10-05 23:05 | Cardiology Progress Note ---
Subjective Subjective [id number] Objective Last 24 Hour Vital Signs Date Time Temp Pulse Resp B/P (MAP) Pulse Ox O2 Delivery O2 Flow Rate FiO2 10/05/17 20:00 97.0 82 20 148/70 94 10/05/17 19:08 74 20 100 Room Air 21 10/05/17 19:01 78 20 97 Room Air 21 10/05/17 16:15 77 20 99 Room Air 21 10/05/17 16:00 77 10/05/17 16:00 98.1 76 19 133/68 97 Room Air 10/05/17 16:00 73 20 97 Room Air 21 10/05/17 12:00 68 10/05/17 12:00 98.0 68 19 129/68 95 Room Air 10/05/17 11:30 67 18 100 Room Air 21 10/05/17 11:20 65 18 96 Room Air 21 10/05/17 09:21 75 160/68 10/05/17 08:00 85 10/05/17 08:00 97.7 75 20 160/68 95 Room Air 10/05/17 04:00 98.1 77 19 132/79 97 Room Air 10/05/17 04:00 62 10/05/17 00:00 57 10/05/17 00:00 97.7 73 18 121/78 96 Room Air Intake and Output 10/04/17 10/05/17 19:00 07:00 Intake Total 150 ml 30 ml Output Total 400 ml Balance 150 ml -370 ml Intake Oral 30 ml IV Total 150 ml Output Urine Total 400 ml Laboratory Tests Test 10/05/17 06:15 White Blood Count 4.3 K/UL (4.8-10.8) L Red Blood Count 4.41 M/UL (4.20-5.40) Hemoglobin 12.0 G/DL (12.0-16.0) Hematocrit 36.7 % (37.0-47.0) L Mean Corpuscular Volume 83 FL (80-99) Mean Corpuscular Hemoglobin 27.2 PG (27.0-31.0) Mean Corpuscular Hemoglobin Concent 32.6 G/DL (32.0-36.0) Red Cell Distribution Width 13.8 % (11.6-14.8) Platelet Count 203 K/UL (150-450) Mean Platelet Volume 7.5 FL (6.5-10.1) Neutrophils (%) (Auto) 49.2 % (45.0-75.0) Lymphocytes (%) (Auto) 36.8 % (20.0-45.0) Monocytes (%) (Auto) 13.1 % (1.0-10.0) H Eosinophils (%) (Auto) 0.3 % (0.0-3.0) Basophils (%) (Auto) 0.6 % (0.0-2.0) Prothrombin Time 11.2 SEC (9.30-11.50) Prothromb Time International Ratio 1.1 (0.9-1.1) Activated Partial Thromboplast Time 33 SEC (23-33) Troponin I 0.094 ng/mL (0.000-0.056) C-Reactive Protein, Quantitative 1.3 mg/dL (0.00-0.90) H Triglycerides Level 130 MG/DL (30-150) Cholesterol Level 129 MG/DL (< 200) LDL Cholesterol 73 mg/dL (<100) HDL Cholesterol 46 MG/DL (40-60) Cholesterol/HDL Ratio 2.8 (3.3-4.4) L Thyroid Stimulating Hormone (TSH) 1.503 uiU/mL (0.358-3.740) Microbiology Date/Time Source Procedure Growth Status 10/04/17 11:40 Nasal Nares Influenza Types A,B Antigen (BRANDY) - Final Complete 10/04/17 11:10 Urine,Clean Catch Urine Culture - Preliminary Gram Negative Bacillus 1 Resulted MEIR GANNON Oct 05, 2017 23:05
[2017-10-06] VITALS: BP 143/65
--- NOTE | 2017-10-06 00:30 | Consultation ---
DATE OF CONSULTATION: 10/05/2017 CARDIOLOGY CONSULTATION CONSULTING PHYSICIAN: Nikia Stone M.D. IDENTIFICATION DATA: This is an 82-year-old female. REASON FOR ADMISSION: Shortness of breath. HISTORY OF PRESENT ILLNESS: The patient had some fever and cough for three weeks, but she was not getting better and she really was short of breath. So, she decided to come to the emergency department. At [facility], she was assessed and diagnosed with bronchitis and admitted. She is known to me with history of paroxysmal atrial fibrillation and she was on amiodarone and Eliquis. She also has history of hypertension. Her previous coronary workup was negative with a stress nuclear that was done at [facility] in 2016 negative. The patient denies any chest pain. PAST MEDICAL HISTORY: Significant for diabetes, hypertension, obesity, arthritis, and hypothyroidism. ALLERGIES: Not reported. HABITS: No history of drinking, smoking, or drug abuse. MEDICATIONS: At home include Diovan, Eliquis, amiodarone, and metformin. REVIEW OF SYSTEMS: Significant for cough with tenacious sputum. No hemoptysis. No chest pain. No syncope. No palpitations. PHYSICAL EXAMINATION: GENERAL: The patient appears to be comfortable, sitting in her chair. VITAL SIGNS: Blood pressure is 130/70, heart rate is 60, and oxygen saturation is on 2 L of oxygen 99%. HEENT: PERRLA. EOMI. NECK: Supple. Jugular venous pressure is normal. Carotid upstroke is preserved. There is no bruit. LUNGS: Scattered rales. HEART: Regular with accentuated A2. BREASTS: No masses. ABDOMEN: Soft and nontender. EXTREMITIES: Lower extremity, trace edema. DIAGNOSTIC DATA: ECG, sinus rhythm with some mild ST depression in lateral leads. Troponin 0.074. Glucose 157. AST 61, ALT 99, HDL 46, albumin 3.3. Chest x-ray unremarkable. IMPRESSION AND RECOMMENDATION: The patient has paroxysmal atrial fibrillation, which is controlled now on amiodarone. The patient has mildly elevated troponin probably due to her respiratory status. Her EKG does not look different from her baseline EKG. So, I would suggest just medical management. Thank you very much for your consultation. Nikia Stone M.D. DR: HERON JOB#: [id number] CC:
[2017-10-06 04:00] VITALS: BP 137/75
[2017-10-06] MEDS: sitaGLIPtin 25mg tab ORAL SCH (06:07)
[2017-10-06] MEDS: Albuterol/Ipratropium 3ml neb HHN SCH ×2 (06:39→12:29)
[2017-10-06 08:00] VITALS: BP 144/59
[2017-10-06] MEDS: Eliquis 2.5mg tablet ORAL SCH (08:36)
[2017-10-06] MEDS: Aspirin Baby 81mg ORAL SCH (08:37)
[2017-10-06] MEDS: Benzonatate 100mg Perles ORAL SCH ×2 (08:37→12:01)
[2017-10-06] MEDS: Amiodarone 200mg tab ORAL SCH (08:37)
[2017-10-06] MEDS: Levofloxacin 500mg tab ORAL SCH (08:37)
--- NOTE | 2017-10-06 10:56 | Infectious Diseases Prog Note ---
Assessment/Plan Assessment/Plan Assessment: Acute bronchitis -CXR: No acute disease -Influenza neg pyuria/bacteriuria- asymptomatic -u/a wbc 5-10, nit +, leuk +2' ucx >100K GNR Afebrile, no leukocytosis Troponinemia HTN Dm2 Plan: - Cont pt on PO Levaquin d # 2 5 cont pt on Zosyn #2 -15 SP Levaquin x1 -f/u cx -Monitor CBC/BMP, temperatures -resp support Subjective Constitutional: Denies: no symptoms, fever, chills, fatigue, anorexia, drenching sweats, other Allergies: Coded Allergies: No Known Allergies (Unverified , 08/12/17) Objective Vital Signs Last 24 Hour Vital Signs Date Time Temp Pulse Resp B/P (MAP) Pulse Ox O2 Delivery O2 Flow Rate FiO2 10/06/17 08:37 79 144/59 10/06/17 08:00 97.8 79 19 144/59 96 Room Air 10/06/17 06:51 57 20 99 Room Air 21 10/06/17 06:39 57 20 97 Room Air 21 10/06/17 04:00 97.7 62 20 137/75 98 10/06/17 04:00 56 10/06/17 00:00 59 10/06/17 00:00 97.0 66 20 143/65 96 10/05/17 20:00 97.0 82 20 148/70 94 10/05/17 20:00 78 10/05/17 19:08 74 20 100 Room Air 21 10/05/17 19:01 78 20 97 Room Air 21 10/05/17 16:15 77 20 99 Room Air 21 10/05/17 16:00 77 10/05/17 16:00 98.1 76 19 133/68 97 Room Air 10/05/17 16:00 73 20 97 Room Air 21 10/05/17 12:00 68 10/05/17 12:00 98.0 68 19 129/68 95 Room Air 10/05/17 11:30 67 18 100 Room Air 21 10/05/17 11:20 65 18 96 Room Air 21 Height (Feet): 5 Height (Inches): 1.00 Weight (Pounds): 182 HEENT: mucous membranes moist Respiratory/Chest: normal breath sounds Cardiovascular: regular rhythm Abdomen: no organomegaly Microbiology Date/Time Source Procedure Growth Status 10/04/17 11:40 Nasal Nares Influenza Types A,B Antigen (BRANDY) - Final Complete 10/04/17 11:10 Urine,Clean Catch Urine Culture - Final Klebsiella Pneumoniae Complete Laboratory Tests Test 10/06/17 07:13 Troponin I 0.063 ng/mL (0.000-0.056) Current Medications Medications (Trade) Dose Ordered Sig/Esa Route PRN Reason Start Time Stop Time Status Last Admin Dose Admin Acetaminophen (Tylenol) 650 mg Q4H PRN ORAL fever (temp>100.5F) 10/04/17 14:15 11/03/17 14:14 Albuterol/ Ipratropium (Albuterol/ Ipratropium) 3 ml Q4H PRN HHN Shortness of Breath 10/04/17 14:15 10/09/17 14:14 Albuterol/ Ipratropium (Albuterol/ Ipratropium) 3 ml TIDRT HHN 10/05/17 13:00 10/10/17 12:59 10/06/17 06:39 Amiodarone HCl (Cordarone) 200 mg DAILY ORAL 10/05/17 10:00 11/04/17 09:59 10/06/17 08:37 Amlodipine Besylate (Norvasc) 5 mg DAILY ORAL 10/05/17 09:00 11/04/17 08:59 10/06/17 08:37 Apixaban (Eliquis) 5 mg BID ORAL 10/05/17 10:00 11/04/17 09:59 10/06/17 08:36 Aspirin (ASA) 162 mg DAILY ORAL 10/05/17 09:00 11/04/17 08:59 10/06/17 08:37 Benzonatate (Tessalon Perles) 100 mg THREE TIMES A DAY ORAL 10/05/17 13:00 11/04/17 12:59 10/06/17 08:37 Diltiazem HCl (Cardizem) 10 mg EVERY HOUR PRN IV heart rate more than 120 bpm 10/04/17 14:15 11/03/17 14:14 Enalaprilat (Vasotec) 2.5 mg Q5H PRN IV sbp more than 160 mmHg 10/04/17 14:15 11/03/17 14:14 Levofloxacin (Levaquin) 250 mg DAILY ORAL 10/07/17 09:00 10/14/17 23:59 Methocarbamol (Robaxin) 750 mg Q6H PRN ORAL Muscle spasms 10/04/17 18:00 11/03/17 17:59 Morphine Sulfate (Morphine Sulfate) 2 mg Q4H PRN IVP severe Pain (Pain Scale 7-10) 10/05/17 11:00 10/11/17 14:14 Nitroglycerin (Ntg) 0.4 mg Q5M PRN SL Prn Chest Pain 10/04/17 14:15 11/03/17 14:14 Ondansetron HCl (Zofran) 4 mg Q6H PRN IVP Nausea & Vomiting 10/04/17 14:15 11/03/17 14:14 Polyethylene Glycol (Miralax) 17 gm DAILYPRN PRN ORAL Constipation 10/04/17 14:15 11/03/17 14:14 10/05/17 05:56 Promethazine HCl/ Codeine (Phenergan with Codeine) 5 ml Q4H PRN ORAL For Cough 10/04/17 14:15 11/03/17 14:14 10/05/17 09:25 Sitagliptin Phosphate (Januvia) 25 mg ACBREAKFAST ORAL 10/05/17 11:30 11/04/17 11:29 10/06/17 06:07 Temazepam (Restoril) 15 mg HSPRN PRN ORAL Insomnia 10/04/17 14:15 10/11/17 14:14 10/04/17 22:53 CHELE MORATAYA M.D. Oct 06, 2017 10:56
--- NOTE | 2017-10-06 11:38 | Pulmonology Progress Note ---
Assessment/Plan Assessment/Plan ASSESSMENT Elevated troponin-(due to resp symptoms ) Acute bronchitis bacteriuria DM HTN elevated LFT PAF PLAN OF CARE Tele serial troponin with minimal elevation cardio eval appreciated per cardio minimal elevation in troponin likely due to resp symptoms ECG no acute ischemic changes, at baseline-as pr her cardio ECHO with pEF 60-65% ASA O2 HHN ATC and prn Fup with CXR empiric abx, influenza negative, blood cx prel negative, sputum cx if able , urine cx + Klebsiella, no urinary complaint, bacteriuria ID follows a/tussive prn BP management with CCB and optimize as needed BS management with Januvia, hold metformin creat slightly up DVT prophylaxis lipid panel and TSH stable , Currently in SR, on a/c with Eliquis and Amiodarone dc today scripts provided outpt fup with PMD and cardio case discussed and evaluated by supervising physician Subjective Allergies: Coded Allergies: No Known Allergies (Unverified , 08/12/17) Subjective afebrile, no leucocytosis, still with cough, mainly nonproductive, no wheezing, no hemoptysis no hx of asthma,no smoking similar episode x 1 few years ago ; was in inhaler and nasal spray , helped denies chest pain, shortness of breath on RA pulse ox stable feeling better overall Objective Last 24 Hour Vital Signs Date Time Temp Pulse Resp B/P (MAP) Pulse Ox O2 Delivery O2 Flow Rate FiO2 10/06/17 08:37 79 144/59 10/06/17 08:00 97.8 79 19 144/59 96 Room Air 10/06/17 08:00 79 10/06/17 06:51 57 20 99 Room Air 21 10/06/17 06:39 57 20 97 Room Air 21 10/06/17 04:00 97.7 62 20 137/75 98 10/06/17 04:00 56 10/06/17 00:00 59 10/06/17 00:00 97.0 66 20 143/65 96 10/05/17 20:00 97.0 82 20 148/70 94 10/05/17 20:00 78 10/05/17 19:08 74 20 100 Room Air 21 10/05/17 19:01 78 20 97 Room Air 21 10/05/17 16:15 77 20 99 Room Air 21 10/05/17 16:00 77 10/05/17 16:00 98.1 76 19 133/68 97 Room Air 10/05/17 16:00 73 20 97 Room Air 21 10/05/17 12:00 68 10/05/17 12:00 98.0 68 19 129/68 95 Room Air Intake and Output 10/05/17 10/06/17 19:00 07:00 Intake Total 730 ml 240 ml Balance 730 ml 240 ml Intake Oral 730 ml 240 ml # Voids 2 Objective General Appearance: no acute distress, other - A/A/O x 4 Beninese speaking elderly female in NAD HEENT: normocephalic, atraumatic, anicteric, mucous membranes moist Respiratory/Chest: lungs clear, no respiratory distress, no accessory muscle use Cardiovascular: normal rate - SR on tele , regular rhythm Abdomen: normal bowel sounds, soft, non tender - obese Extremities: no edema Skin: rash Neurologic/Psychiatric: no motor/sensory deficits, alert, oriented x 3, responsive Musculoskeletal: normal muscle bulk Microbiology Date/Time Source Procedure Growth Status 10/04/17 13:35 Blood Blood Culture - Preliminary NO GROWTH AFTER 24 HOURS Resulted 10/04/17 13:30 Blood Blood Culture - Preliminary NO GROWTH AFTER 24 HOURS Resulted 10/04/17 11:40 Nasal Nares Influenza Types A,B Antigen (BRANDY) - Final Complete 10/04/17 11:10 Urine,Clean Catch Urine Culture - Final Klebsiella Pneumoniae Complete Laboratory Tests 10/06/17 07:13: Troponin I 0.063H Current Medications Medications (Trade) Dose Ordered Sig/Esa Route PRN Reason Start Time Stop Time Status Last Admin Dose Admin Acetaminophen (Tylenol) 650 mg Q4H PRN ORAL fever (temp>100.5F) 10/04/17 14:15 11/03/17 14:14 Albuterol/ Ipratropium (Albuterol/ Ipratropium) 3 ml Q4H PRN HHN Shortness of Breath 10/04/17 14:15 10/09/17 14:14 Albuterol/ Ipratropium (Albuterol/ Ipratropium) 3 ml TIDRT HHN 10/05/17 13:00 10/10/17 12:59 10/06/17 06:39 Amiodarone HCl (Cordarone) 200 mg DAILY ORAL 10/05/17 10:00 11/04/17 09:59 10/06/17 08:37 Amlodipine Besylate (Norvasc) 5 mg DAILY ORAL 10/05/17 09:00 11/04/17 08:59 10/06/17 08:37 Apixaban (Eliquis) 5 mg BID ORAL 10/05/17 10:00 11/04/17 09:59 10/06/17 08:36 Aspirin (ASA) 162 mg DAILY ORAL 10/05/17 09:00 11/04/17 08:59 10/06/17 08:37 Benzonatate (Tessalon Perles) 100 mg THREE TIMES A DAY ORAL 10/05/17 13:00 11/04/17 12:59 10/06/17 08:37 Diltiazem HCl (Cardizem) 10 mg EVERY HOUR PRN IV heart rate more than 120 bpm 10/04/17 14:15 11/03/17 14:14 Enalaprilat (Vasotec) 2.5 mg Q5H PRN IV sbp more than 160 mmHg 10/04/17 14:15 11/03/17 14:14 Levofloxacin (Levaquin) 250 mg DAILY ORAL 10/07/17 09:00 10/14/17 23:59 Methocarbamol (Robaxin) 750 mg Q6H PRN ORAL Muscle spasms 10/04/17 18:00 11/03/17 17:59 Morphine Sulfate (Morphine Sulfate) 2 mg Q4H PRN IVP severe Pain (Pain Scale 7-10) 10/05/17 11:00 10/11/17 14:14 Nitroglycerin (Ntg) 0.4 mg Q5M PRN SL Prn Chest Pain 10/04/17 14:15 11/03/17 14:14 Ondansetron HCl (Zofran) 4 mg Q6H PRN IVP Nausea & Vomiting 10/04/17 14:15 11/03/17 14:14 Polyethylene Glycol (Miralax) 17 gm DAILYPRN PRN ORAL Constipation 10/04/17 14:15 11/03/17 14:14 10/05/17 05:56 Promethazine HCl/ Codeine (Phenergan with Codeine) 5 ml Q4H PRN ORAL For Cough 10/04/17 14:15 11/03/17 14:14 10/05/17 09:25 Sitagliptin Phosphate (Januvia) 25 mg ACBREAKFAST ORAL 10/05/17 11:30 11/04/17 11:29 10/06/17 06:07 Temazepam (Restoril) 15 mg HSPRN PRN ORAL Insomnia 10/04/17 14:15 10/11/17 14:14 10/04/17 22:53 Rashi ([facility])[place] NP Oct 06, 2017 11:38
--- NOTE | 2017-10-06 11:51 | Diagnostic Imaging Report ---
Indication: Dyspnea Comparison: 10/04/2017 A single view chest radiograph was obtained. Findings: No definite infiltrate or pulmonary vascular congestion identified. The heart is enlarged. The aorta is mildly enlarged consistent with atherosclerotic vascular disease. The bones are osteopenic. Impression: No acute disease
[2017-10-06 12:00] VITALS: BP 131/60
[2017-10-06] MEDS ORDERED: PROAIR HFA8.5 GM INH (12:16)
[2017-10-06] MEDS ORDERED: LEVAQUIN250 M1 ORAL (12:16)
[2017-10-06] MEDS ORDERED: BENZONATATE100 MG ORAL (12:16)
[2017-10-06] MEDS ORDERED: SYMBICORT 1601 PUFFS INH (12:16)
[2017-10-06] MEDS ORDERED: Tubing IV Secondary IV ONE (17:21)
--- NOTE | 2017-10-09 15:28 | Cardiology Report ---
APPROVED REPORT EKG Measurement Heart [id number] Normal sinus rhythm Minimal voltage criteria for LVH, may be normal variant Cannot rule out Anterior infarct, age undetermined Abnormal ECG
--- NOTE | 2017-10-09 15:31 | Cardiology Report ---
APPROVED REPORT EKG Measurement Heart [id number] ME 154P13 [id number] Sinus rhythm with premature atrial complexes Cannot rule out Anterior infarct, age undetermined Abnormal ECG motion artifact may affect interpretation
--- NOTE | 2017-10-10 09:07 | Discharge Summary ---
Discharge Summary Hospital Course Date of Admission Oct 04, 2017 at 12:50 Date of Discharge Oct 06, 2017 at 13:50 Admitting Diagnosis elev troponin, UTI , PNA HPI Shannan Navarrete is a 82 year old female who was admitted on Oct 04, 2017 at 12: 50 for Acute Coronary Syndrome Rule Out, Urinary- Hospital Course dc summary #[id number] Discharge Medications New Medications: Albuterol Sulfate* (Proair Hfa*) 8.5 Gm Hfa.aer.ad 1 PUFF INH Q6H, #8.5 GM 0 Refills Budesonide/Formoterol Fumarate (Symbicort 160-4.5 Mcg Inhaler) 6 Gm Hfa.aer.ad 1 PUFF INH TWICE A DAY, #1 INH 0 Refills Benzonatate* (Benzonatate*) 100 Mg Capsule 100 MG ORAL THREE TIMES A DAY, #60 CAP Levofloxacin* (Levaquin*) 250 Mg Tablet 250 MG ORAL DAILY, #3 TAB Continued Medications: Amiodarone Hcl* (Amiodarone Hcl*) 400 Mg Tablet 200 MG ORAL DAILY, TAB Amlodipine Besylate* (Amlodipine Besylate*) 5 Mg Tablet 5 MG ORAL DAILY Apixaban (Eliquis) 5 Mg Tablet 5 MG ORAL BID Gabapentin* (Gabapentin*) 100 Mg Capsule 100 MG ORAL THREE TIMES A DAY PRN for For Pain, CAP Rosuvastatin Calcium* (Crestor*) 10 Mg Tablet 5 MG ORAL DAILY, TAB Sitagliptin Phos/Metformin Hcl (Janumet 50-500 Mg Tablet) 1 Each Tablet 1 TAB ORAL DAILY, TAB Tramadol Hcl* (Ultram*) 50 Mg Tablet 50 MG ORAL Q6H PRN for For Pain, #30 TAB 0 Refills Discharge Condition Upon Discharge: stable Discharge Disposition Patient was discharged to Home () Discharge Diagnoses: Rashi (Vancyuein),Peace WING Oct 10, 2017 09:07
--- NOTE | 2017-10-10 16:45 | Discharge Summary 2 SIG ---
DATE OF ADMISSION: 10/04/2017 DATE OF DISCHARGE: 10/06/2017 REASON FOR ADMISSION: 82-year-old female with history of hypertension, diabetes, and atrial fibrillation, presented to emergency department with shortness of breath and cough for three days. Denied chest pain. Denied sick contacts. She had flu vaccine this year. Upon admission, no leukocytosis, stable hemoglobin and hematocrit. Troponin -0.074. Urinalysis with evidence of UTI. Chest x-ray revealed no acute cardiopulmonary pathology. The patient was diagnosed with shortness of breath, possible pneumonia, possible UTI, and elevated troponin. The patient was admitted for further management. HOSPITAL COURSE: The patient was admitted to telemetry floor. Cardiology and ID consults were requested. Serial troponin showed minimal elevation. General Dentist seen and evaluated the patient. According to mechanics handyman, minimal elevation in troponin was likely due to her respiratory symptoms. EKG obtained in this hospital revealed no acute ischemic changes and was on the baseline, as per mechanics handyman who follows the patient as an outpatient as well. Echocardiogram revealed preserved ejection fracture of 60% to 65%. The patient was on aspirin. Supplemental oxygen provided as needed to keep pulse oximetry above 92%. Pulmonary toilet provided around the clock and as needed. The patient was on empiric antibiotics. ID specialist followed. Influenza screen test was negative. Blood cultures were negative. Urine culture revealed Klebsiella, however, the patient had no urinary complaints, and according to ID, likely had bacteriuria. Antitussive provided as needed. Pneumonia was ruled out with negative sputum and negative CXR x 2. Blood pressure was managed with a calcium channel sonia and remained stable. Blood sugar was managed with Januvia. Metformin was held for slightly elevated creatinine. DVT prophylaxis provided. Lipid panel and TSH were within normal limits. The patient with a history of paroxysmal atrial fibrillation, but was in sinus rhythm on telemetry. Anticoagulation with Eliquis and amiodarone for rate control were continued. Followup chest x-ray revealed no acute cardiopulmonary pathology. The patient was noted to have mild elevation in LFT with AST -61, ALT-99, possibly due to statin. No abdominal pain. No GI complaints. The patient was stable for discharge home. DISCHARGE INSTRUCTIONS: The patient was discharged home. Follow up with the primary care provider and mechanics handyman. Prescription provided for empiric antibiotic for additional three days, inhalers, and antitussive. Continue other medication as outlined in medication reconciliation list. The patient to recheck LFT and creatinine. DISCHARGE MEDICATIONS: See medication reconciliation list. DISCHARGE DIAGNOSES: 1. Elevated troponin, likely due to respiratory symptoms. 2. Acute bronchitis. 3. Bacteriuria. 4. Diabetes. 5. Hypertension. 6. Paroxysmal atrial fibrillation. 7. Elevated liver function tests. Oz Muse M.D. [facility]aresGen[facility] HospitalBrigette NJaylenePJaylene DR: YENI JOB#: [id number] CC: ALISA
--- NOTE | 2017-10-10 21:54 | Diagnostic Imaging Report ---
APPROVED REPORT CPT Code: 97376 Present Symptoms Comments: R/O DVT BILATERAL: Imaging reveals a patent deep venous system bilaterally. There is no evidence of thrombus within the femoral, popliteal or tibial segments. The greater saphenous veins are also within normal limits. Doppler indicates normal spontaneous flow within these segments.
--- NOTE | 2017-10-29 09:51 | Cardiology Report ---
APPROVED REPORT EXAM: Two-dimensional and M-mode echocardiogram with Doppler and color Doppler. INDICATION Left ventricular function M-Mode DIMENSIONS IVSd1.4 (0.7-1.1cm)Left Atrium (MM)3.9 (1.6-4.0cm) LVDd4.4 (3.5-5.6cm)Aortic Root2.8 (2.0-3.7cm) PWd1.1 (0.7-1.1cm)Aortic Cusp Exc.1.8 (1.5-2.0cm) LVDs3.0 (2.5-4.0cm) PWs1.3 cm Technically limited and difficult study due to poor acoustical windows. Normal left ventricular chamber size, systolic function and wall motion. Left ventricular ejection fraction estimated to be 60-65%. No evidence of left ventricular hypertrophy. No evidence of pericardial or pleural effusion. All other cardiac chamber sizes are within normal limits. Focal aortic valve sclerosis with adequate cusp excursion. Thickened mitral valve leaflets with normal excursion. Mild mitral annulus and aortic root calcification. Pulmonic valve is well visualized. Normal tricuspid valve structure. IVC is normal in size and collapsible with respiration. A color flow and spectral Doppler study was performed and revealed: Mild aortic regurgitation (2 jets). No mitral regurgitation. Mitral diastolic velocities suggest reduced left ventricular relaxation c/w diastolic dysfunction grade 1. Trace tricuspid regurgitation. Pulmonic regurgitation present.
== END 2017-10-06 13:50 | disposition home or self-care (01) | DRG 203 ==
LOC: EDBD 11:14 → EDUNIT# 11:14 → EMR 11:55 → UNDOADMIN 12:50 → 2E 12:50 → EDBEDREQ 16:04
DX: J20.9 Acute bronchitis, unspecified (principal); I48.0 Paroxysmal atrial fibrillation; E11.9 Type 2 diabetes mellitus without complications; I10 Essential (primary) hypertension; Z79.01 Long term (current) use of anticoagulants; E03.9 Hypothyroidism, unspecified; R74.8 Abnormal levels of other serum enzymes; R82.71 Bacteriuria
CPT/HCPCS: 36415; 71045; 80053; 80061; 81003; 82550; 82553; 82962; 84443; 84484; 85025; 85610; 85730; 86140; 86710; 87040; 87070; 87086; 87181; 87205; 93005; 93306; 93970; 94640; 99285; J7620

== ENCOUNTER 2018-08-11 18:38 | Emergency (ER) | payer MEDICARE, BC ==
[~2018-08-11] VITALS: Ht 162.6 cm; Wt 72.6 kg
[2018-08-11 18:38] VITALS: BP 148/50
[~2018-08-11 18:38] MED LIST changes: +AMIODARONE HCL400 M1 ORAL; +AMLODIPINE BESYL5 MG ORAL; +BENZONATATE100 MG ORAL; +CRESTOR10 M2 ORAL; +ELIQUIS5 MG ORAL; +GABAPENTIN100 MG ORAL; +JANUMET 50-5001 EACH ORAL; +LEVAQUIN250 M1 ORAL; +METFORMIN HCL500 M1 ORAL; +PROAIR HFA8.5 GM INH; +SYMBICORT 1601 PUFFS INH; +TRAMADOL HCL50 MG ORAL
[2018-08-11 19:13] LABS: BASOPHILS % (AUTO) 0.8 % (0.0-2.0); EOSINOPHILS % (AUTO) 1.1 % (0.0-3.0); HEMATOCRIT 38.5 % (37.0-47.0); HEMOGLOBIN 12.5 G/DL (12.0-16.0); LYMPHOCYTES % (AUTO) 27.8 % (20.0-45.0); MEAN CORPUSCULAR VOLUME 87 FL (80-99); MONOCYTES % (AUTO) 7.9 % (1.0-10.0); NEUTROPHILS % (AUTO) 62.4 % (45.0-75.0); PLATELET COUNT 235 K/UL (150-450); RED BLOOD COUNT 4.42 M/UL (4.20-5.40); WHITE BLOOD COUNT 6.4 K/UL (4.8-10.8)
[2018-08-11 19:14] VITALS: BP 143/51
[2018-08-11 19:26] LABS: ANION GAP 10 mmol/L (5-15); BLOOD UREA NITROGEN 25 mg/dL (7-18); CALCIUM 9.4 MG/DL (8.5-10.1); CARBON DIOXIDE 28 MMOL/L (21-32); CHLORIDE 99 MMOL/L (98-107); CREATININE 1.6 MG/DL (0.55-1.30); POTASSIUM 3.1 MMOL/L (3.5-5.1); SODIUM 137 MMOL/L (136-145)
[2018-08-11 19:42] LABS: ALANINE AMINOTRANSFERASE 38 U/L (12-78); ALBUMIN 3.7 G/DL (3.4-5.0); ALKALINE PHOSPHATASE 68 U/L (46-116); ASPARTATE AMINO TRANSFERASE 25 U/L (15-37); BILIRUBIN,TOTAL 0.5 MG/DL (0.2-1.0); CKMB 0.7 NG/ML (0.0-3.6); CREATINE KINASE 49 U/L (26-308)
[2018-08-11 21:06] VITALS: BP 143/51
--- NOTE | 2018-08-11 22:40 | Emergency Room Report ---
History of Present Illness General Chief Complaint: Chest Pain Source: EMS Present Illness Allergies: Coded Allergies: No Known Allergies (Unverified , 08/12/17) Nursing Documentation-[facility] Past Medical History: No History, Except For Hx Cardiac Problems: Yes - A- Fib Hx Hypertension: Yes Hx Diabetes: Yes Hx Cancer: No Hx Gastrointestinal Problems: No Hx Neurological Problems: No Physical Exam Vital Signs Date Time Temp Pulse Resp B/P (MAP) Pulse Ox O2 Delivery O2 Flow Rate FiO2 08/11/18 18:27 96.8 70 16 172/83 98 08/11/18 18:38 Room Air Medical Decision Making Diagnostic Impression: Primary Impression: Hypertension Additional Impression: Nonspecific chest pain Labs Test 08/11/18 19:00 White Blood Count 6.4 K/UL (4.8-10.8) Red Blood Count 4.42 M/UL (4.20-5.40) Hemoglobin 12.5 G/DL (12.0-16.0) Hematocrit 38.5 % (37.0-47.0) Mean Corpuscular Volume 87 FL (80-99) Mean Corpuscular Hemoglobin 28.3 PG (27.0-31.0) Mean Corpuscular Hemoglobin Concent 32.5 G/DL (32.0-36.0) Red Cell Distribution Width 11.0 % (11.6-14.8) Platelet Count 235 K/UL (150-450) Mean Platelet Volume 7.7 FL (6.5-10.1) Neutrophils (%) (Auto) 62.4 % (45.0-75.0) Lymphocytes (%) (Auto) 27.8 % (20.0-45.0) Monocytes (%) (Auto) 7.9 % (1.0-10.0) Eosinophils (%) (Auto) 1.1 % (0.0-3.0) Basophils (%) (Auto) 0.8 % (0.0-2.0) Sodium Level 137 MMOL/L (136-145) Potassium Level 3.1 MMOL/L (3.5-5.1) Chloride Level 99 MMOL/L (98-107) Carbon Dioxide Level 28 MMOL/L (21-32) Anion Gap 10 mmol/L (5-15) Blood Urea Nitrogen 25 mg/dL (7-18) Creatinine 1.6 MG/DL (0.55-1.30) Estimat Glomerular Filtration Rate mL/min (>60) Glucose Level 93 MG/DL (74-106) Calcium Level 9.4 MG/DL (8.5-10.1) Total Bilirubin 0.5 MG/DL (0.2-1.0) Aspartate Amino Transf (AST/SGOT) 25 U/L (15-37) Alanine Aminotransferase (ALT/SGPT) 38 U/L (12-78) Alkaline Phosphatase 68 U/L (46-116) Total Creatine Kinase 49 U/L (26-308) Creatine Kinase MB 0.7 NG/ML (0.0-3.6) Creatine Kinase MB Relative Index 1.4 Troponin I 0.027 ng/mL (0.000-0.056) Pro-B-Type Natriuretic Peptide 248 pg/mL (0-125) Total Protein 7.3 G/DL (6.4-8.2) Albumin 3.7 G/DL (3.4-5.0) Globulin 3.6 g/dL Albumin/Globulin Ratio 1.0 (1.0-2.7) EKG Diagnostic Results Rate: normal - 66 Rhythm: NSR, other - nonspecific st changes ST Segments: no acute changes Rhythm Strip Diag. Results EP Interpretation: yes Rhythm: NSR, no PVC's, no ectopy Last Vital Signs Date Time Temp Pulse Resp B/P (MAP) Pulse Ox O2 Delivery O2 Flow Rate FiO2 08/11/18 21:06 97.5 67 16 143/51 100 Room Air 67 Status: improved Disposition: HOME, SELF-CARE Condition: Stable Patient Instructions: Nonspecific Chest Pain Noe Holland MD Aug 11, 2018 22:40
--- NOTE | 2018-08-12 14:09 | Cardiology Report ---
APPROVED REPORT EKG Measurement Heart [id number] [place] 158P50 [id number] Normal sinus rhythm Left axis deviation Nonspecific ST abnormality Abnormal ECG
--- NOTE | 2018-08-12 17:37 | Diagnostic Imaging Report ---
Indication: Chest pain Technique: One view of the chest Comparison: none Findings: Heart is mildly enlarged. The aorta is tortuous and calcified. Impression: No acute process
== END 2018-08-11 21:00 | disposition home or self-care (01) ==
LOC: EDBD 18:38 → EMR 18:53
DX: I10 Essential (primary) hypertension (principal); R07.9 Chest pain, unspecified; E11.9 Type 2 diabetes mellitus without complications; I48.91 Unspecified atrial fibrillation
CPT/HCPCS: 36415; 71045; 80053; 82550; 82553; 83880; 84484; 85025; 93005; 99284

== ENCOUNTER 2019-10-07 12:53 | Inpatient (IN) | payer MEDICARE, BC ==
[~2019-10-07] VITALS: Ht 154.9 cm; Wt 80.3 kg
[2019-10-07 12:53] VITALS: BP 137/77
[~2019-10-07 12:53] MED LIST changes: +BENICAR HCT 201 EACH ORAL; +GLIMEPIRIDE4 MG ORAL; +PANTOPRAZOLE SO40 MG ORAL; +ROPINIROLE HCL1 MG PO; +TYLENOL EXTRA500 MG ORAL; +n; +sotalol
[2019-10-07] MEDS ORDERED: Nitroglycerin 2% oint pkt TOPIC ONE ×2 (12:59→13:00)
--- NOTE | 2019-10-07 13:00 | Emergency Room Report ---
History of Present Illness General Chief Complaint: Chest Pain Source: Patient, EMS Present Illness HPI 84-year-old female with intermittent chest pressure times a week gradually worsening, patient was seen other doctors office, and sent to ED for evaluation aggravated with activity alleviated with rest severity is moderate, intermittent additionally patient reports that nitroglycerin helps as well as aspirin patient presents for evaluation she also endorses some shortness of breath Allergies: Coded Allergies: No Known Allergies (Unverified , 08/12/17) Patient History Past Medical History: see triage record Reviewed Nursing Documentation: PMH: Agreed; PSxH: Agreed Nursing Documentation-PMH Hx Hypertension: Yes Hx Diabetes: Yes Hx Cancer: No Hx Gastrointestinal Problems: No History Of Psychiatric Problem: Yes Hx Neurological Problems: No Review of Systems All Other Systems: negative except mentioned in HPI Physical Exam Vital Signs Date Time Temp Pulse Resp B/P (MAP) Pulse Ox O2 Delivery O2 Flow Rate FiO2 10/07/19 12:45 98.2 19 137/77 (97) 93 Room Air Sp02 EP Interpretation: reviewed, normal General Appearance: well appearing, no apparent distress, alert Head: normocephalic, atraumatic Eyes: bilateral eye PERRL, bilateral eye EOMI ENT: uvula midline, moist mucus membranes Neck: supple, thyroid normal, supple/symm/no masses Respiratory: lungs clear, no respiratory distress, no retraction, no accessory muscle use Cardiovascular #1: normal peripheral pulses, regular rate, rhythm, no edema, no gallop, no murmur Gastrointestinal: non tender, soft, no guarding, no rebound Musculoskeletal: normal inspection Neurologic: alert, oriented x3 Psychiatric: mood/affect normal Skin: no rash, warm/dry Medical Decision Making Diagnostic Impression: Primary Impression: Chest pain Qualified Codes: R07.9 - Chest pain, unspecified ER Course 84-year-old female presents with chest pain differential diagnosis includes ACS , pneumonia, chest wall pain Patient received aspirin, nitroglycerin helped her pain Patient admitted to Dr. Frey for ACS rule out.l Laboratory Tests Test 10/07/19 13:00 White Blood Count 6.9 K/UL (4.8-10.8) Red Blood Count 4.02 M/UL (4.20-5.40) L Hemoglobin 11.1 G/DL (12.0-16.0) L Hematocrit 33.7 % (37.0-47.0) L Mean Corpuscular Volume 84 FL (80-99) Mean Corpuscular Hemoglobin 27.6 PG (27.0-31.0) Mean Corpuscular Hemoglobin Concent 33.0 G/DL (32.0-36.0) Red Cell Distribution Width 13.8 % (11.6-14.8) Platelet Count 242 K/UL (150-450) Mean Platelet Volume 7.2 FL (6.5-10.1) Neutrophils (%) (Auto) 61.4 % (45.0-75.0) Lymphocytes (%) (Auto) 26.6 % (20.0-45.0) Monocytes (%) (Auto) 9.4 % (1.0-10.0) Eosinophils (%) (Auto) 1.1 % (0.0-3.0) Basophils (%) (Auto) 1.5 % (0.0-2.0) Prothrombin Time 11.0 SEC (9.30-11.50) Prothrombin Time INR 1.0 (0.9-1.1) Activated Partial Thromboplast Time 28 SEC (23-33) Sodium Level 142 MMOL/L (136-145) Potassium Level 3.7 MMOL/L (3.5-5.1) Chloride Level 106 MMOL/L (98-107) Carbon Dioxide Level 24 MMOL/L (21-32) Anion Gap 12 mmol/L (5-15) Blood Urea Nitrogen 18 mg/dL (7-18) Creatinine 1.4 MG/DL (0.55-1.30) H Estimate Glomerular Filtration Rate 35.8 mL/min (>60) Glucose Level 178 MG/DL (74-106) H Calcium Level 9.6 MG/DL (8.5-10.1) Total Bilirubin 0.4 MG/DL (0.2-1.0) Aspartate Amino Transferase (AST) 17 U/L (15-37) Alanine Aminotransferase (ALT) 18 U/L (12-78) Alkaline Phosphatase 49 U/L (46-116) Troponin I 0.011 ng/mL (0.000-0.056) Pro-B-Type Natriuretic Peptide 402 pg/mL (0-125) H Total Protein 7.2 G/DL (6.4-8.2) Albumin 3.4 G/DL (3.4-5.0) Globulin 3.8 g/dL Albumin/Globulin Ratio 0.9 (1.0-2.7) L Lipase 189 U/L (73-393) EKG Diagnostic Results EKG Time: 12:48 EP Interpretation: NSR, rate 74, QTc 463, no acute ST elevations, left axis deviation Rhythm Strip Diag. Results Rhythm Strip Time: 13:10 EP Interpretation: yes Rate: 67 Rhythm: NSR, no PVC's, no ectopy Chest X-Ray Diagnostic Results Chest X-Ray Diagnostic Results : Chest X-Ray Ordered: Yes # of Views/Limited/Complete: 1 View Indication: Chest Pain EP Interpretation: Yes Interpretation: no consolidation, no effusion, no pneumothorax, no acute cardiopulmonary disease Impression: No acute disease Electronically Signed by: Vinny Ruvalcaba MD Last Vital Signs Date Time Temp Pulse Resp B/P (MAP) Pulse Ox O2 Delivery O2 Flow Rate FiO2 10/07/19 12:45 98.2 19 137/77 (97) 93 Room Air Disposition: ADMITTED INPATIENT Condition: Stable Vinny Ruvalcaba MD Oct 07, 2019 13:00
--- NOTE | 2019-10-07 13:00 | NUR ---
ED Nurse Note: Pt brought in by ambulance from clinic d/t abnormal ekg reading and substernal chest pain 5/10 x 2 hours. EMS administered 324 mg aspirin and 2 nasal spray nitro. Respirations even and unlabored on room air. Vitals stable as documented. A+Ox4, denies SOB. Pt placed on monitored bed
[2019-10-07 13:19] LABS: BASOPHILS % (AUTO) 1.5 % (0.0-2.0); EOSINOPHILS % (AUTO) 1.1 % (0.0-3.0); HEMATOCRIT 33.7 % (37.0-47.0); HEMOGLOBIN 11.1 G/DL (12.0-16.0); LYMPHOCYTES % (AUTO) 26.6 % (20.0-45.0); MEAN CORPUSCULAR VOLUME 84 FL (80-99); MONOCYTES % (AUTO) 9.4 % (1.0-10.0); NEUTROPHILS % (AUTO) 61.4 % (45.0-75.0); PLATELET COUNT 242 K/UL (150-450); RED BLOOD COUNT 4.02 M/UL (4.20-5.40); RED CELL DISTRIBUTION WIDTH 13.8 % (11.6-14.8); WHITE BLOOD COUNT 6.9 K/UL (4.8-10.8)
[2019-10-07 13:33] LABS: ANION GAP 12 mmol/L (5-15); BLOOD UREA NITROGEN 18 mg/dL (7-18); CALCIUM 9.6 MG/DL (8.5-10.1); CARBON DIOXIDE 24 MMOL/L (21-32); CHLORIDE 106 MMOL/L (98-107); CREATININE 1.4 MG/DL (0.55-1.30); POTASSIUM 3.7 MMOL/L (3.5-5.1); SODIUM 142 MMOL/L (136-145)
[2019-10-07 13:44] LABS: ALANINE AMINOTRANSFERASE 18 U/L (12-78); ALBUMIN 3.4 G/DL (3.4-5.0); ALBUMIN/GLOBULIN RATIO 0.9 (1.0-2.7); ALKALINE PHOSPHATASE 49 U/L (46-116); ASPARTATE AMINO TRANSFERASE 17 U/L (15-37); BILIRUBIN,TOTAL 0.4 MG/DL (0.2-1.0)
--- NOTE | 2019-10-07 14:58 | Diagnostic Imaging Report ---
Indication: Shortness of breath, chest pain Technique: One view of the chest Comparison: 09/09/2019 Findings: The heart is enlarged. Lungs pleural spaces are clear. The aorta is calcified and ectatic. No significant change Impression: No acute process
--- NOTE | 2019-10-07 15:21 | NUR ---
ED Nurse Note: Report given to DANIELA Abarca in 2E
--- NOTE | 2019-10-07 15:40 | NUR ---
ED Nurse Note: Pt brought up safely on the monitor to 2E without incident.
[2019-10-07 16:00] VITALS: BP 145/71
--- NOTE | 2019-10-07 16:00 | NUR ---
NURSE NOTES: Patient stable AOx4 NSR on heart monitor. RR even and unlabored on RA. All belongings with patient . Side rails upx2, call light within reach, bed low and locked.
[2019-10-07] MEDS: NovoLOG Insulin Flexpen SUBQ SCH ×2 (16:30→21:00)
[2019-10-07] MEDS ORDERED: ATIVAN0.5 MG ORAL (17:07)
[2019-10-07] MEDS ORDERED: VITAMIN C500 M1 ORAL (17:07)
[2019-10-07] MEDS ORDERED: MAGNESIUM400 M1 PO (17:07)
[2019-10-07] MEDS ORDERED: ATACAND32 MG ORAL (17:07)
[2019-10-07] MEDS ORDERED: CENTRUM SILVER1 EAC4 PO (17:07)
[2019-10-07] MEDS ORDERED: SOTALOL80 M1 ORAL (17:07)
[2019-10-07] MEDS ORDERED: AMLODIPINE BESY10 MG ORAL (17:07)
[2019-10-07] MEDS ORDERED: VITAMIN D325 MCG PO (17:07)
[2019-10-07] MEDS ORDERED: LORazepam 0.5mg tab ORAL PRN (17:15)
[2019-10-07] MEDS ORDERED: traMADol 50mg tab ORAL PRN (17:15)
--- NOTE | 2019-10-07 17:20 | Diagnostic Imaging Report ---
Indication: Bilateral leg pain Technique: Grayscale and duplex images of the bilateral lower extremity veins Comparison: Findings: Bilaterally, grayscale and duplex images demonstrate no evidence of intraluminal thrombus. Normal phasic Doppler waveforms, demonstrating normal augmentation response and no evidence of valvular insufficiency. Greater saphenous vein(s) and tibial veins are patent. Normal compressibility. Impression: Negative for evidence of lower extremity deep venous thrombosis bilaterally
[2019-10-07] MEDS ORDERED: Eliquis 2.5mg tablet ORAL SCH (18:00)
[2019-10-07] MEDS ORDERED: Glimepiride 4mg tab ORAL SCH (18:00)
[2019-10-07] MEDS ORDERED: GABAPENTIN300 MG ORAL (18:18)
--- NOTE | 2019-10-07 19:00 | NUR ---
NURSE NOTES: Received report from DANIELA Pulido. Patient is awake, sitting on a chair; resting comfortably. A/Ox4. Denies pain at this time. No signs of acute distress noted. Checked IV site and flushed. No signs of erythema, bleeding or infiltration noted. Bed at lowest position, brakes on, siderailsx2. Call light within reach. Will continue to monitor.
[2019-10-07 20:00] VITALS: BP 136/58
--- NOTE | 2019-10-07 20:00 | NUR ---
HAND-OFF: Report given to Marcela Washington RN. Patient stable. Plan of care endorsed.
[2019-10-07] MEDS: Atorvastatin 20mg tab ORAL SCH ×2 (21:00→21:02)
[2019-10-08] VITALS: BP 129/62
--- NOTE | 2019-10-08 03:57 | NUR ---
NURSE NOTES: Resting throughout the night. No significant change of condition noted. Will continue to monitor.
[2019-10-08 04:00] VITALS: BP 131/69
--- NOTE | 2019-10-08 04:00 | History and Physical Report ---
DATE OF ADMISSION: 10/07/2019 HISTORY OF PRESENT ILLNESS: The patient has history of diabetes, hypertension, constant and atypical chest pressure, admitted for rule out acute coronary syndrome. The patient also has weakness and dizziness, which were exactly the same symptoms that she had about last month when she was admitted to [place]. The patient also complains of shortness of breath. Her main reason at this time, admits for chest pain, rule out acute coronary syndrome. The patient also has hypertension. Denies syncope. Denies nausea, vomiting, or diarrhea. Denies shortness of breath. Denies cough. Denies cold-like symptoms. PAST MEDICAL HISTORY: Significant for basically hypertension, vitamin D deficiency, NIDDM, GERD, hyperlipidemia, and hypertension. PAST SURGICAL HISTORY: None. ALLERGIES: No known allergies. MEDICATIONS: Norvasc, vitamin C, vitamin D, glimepiride, Protonix, and sotalol. FAMILY HISTORY: Noncontributory. SOCIAL HISTORY: Denies history of smoking. Denies alcohol or illicit drugs. REVIEW OF SYSTEMS: HEENT: Denies headaches. RESPIRATORY: Denies shortness of breath. Denies cough. CARDIOVASCULAR: Significant chest pain. GASTROINTESTINAL: Denies nausea, vomiting, or diarrhea. Denies heartburn. EXTREMITIES: Denies pain. CENTRAL NERVOUS SYSTEM: Denies changes in speech pattern. Feels weak and dizzy and also complains of shortness of breath from syncope. PHYSICAL EXAMINATION: VITAL SIGNS: Temperature 98.2, pulse is 66, and blood pressure 137/77. HEENT: PERRLA. NECK: Supple. No lymphadenopathy. CHEST: Clear to auscultation. CARDIOVASCULAR: Regular rate and rhythm. No murmurs or extra sounds. GASTROINTESTINAL: Soft, nontender, and nondistended. No organomegaly. EXTREMITIES: 1+ edema. Reflexes equal on both sides. Moves all four extremities. Sensory intact to light touch. DIAGNOSTIC DATA: Her EKG, no significant findings. LABORATORY DATA: WBC of 6.9, hemoglobin 11.1, and platelets 242,000. Sodium 142, potassium 3.7, BUN of 18, creatinine 1.4, and glucose of 178. Troponin 0.011. ASSESSMENT AND PLAN: 1. Chest pain, rule out acute coronary syndrome. 2. Hypertension. 3. I have consulted Dr. Miller and Dr. Lee for the chest pain and high blood pressure and management to help with that. Adelaida Frey M.D. DR: [place] JOB#: [id number] CC:
[2019-10-08] MEDS: NovoLOG Insulin Flexpen SUBQ SCH ×4 (05:20→21:00)
--- NOTE | 2019-10-08 07:44 | NUR ---
HAND-OFF: Report given to DANIELA Mcgee. Plan of care endorsed.
--- NOTE | 2019-10-08 08:03 | NUR ---
NURSE NOTES: recvd pt. Pt is AOX4, Pt is on room air with no sign of sob or resp distress. 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 IV site is c/d/i and locked. Bed in lowest position,call light within reach, will continue with plan of care
[2019-10-08 08:43] VITALS: BP 131/69
[2019-10-08] MEDS: Ascorbic Acid 500mg tab ORAL SCH (09:00)
[2019-10-08] MEDS: Irbesartan 150mg tablet ORAL SCH ×2 (09:00→10:22)
[2019-10-08] MEDS ORDERED: Sotalol 80mg tab ORAL SCH (09:00)
[2019-10-08] MEDS: Magnesium Oxide 400mg tab ORAL SCH (09:18)
[2019-10-08] MEDS: Vitamin D 1000 IU Tab ORAL SCH (09:18)
[2019-10-08] MEDS: Eliquis 2.5mg tablet ORAL SCH ×2 (09:18→17:35)
[2019-10-08] MEDS: Glimepiride 4mg tab ORAL SCH (09:18)
--- NOTE | 2019-10-08 09:35 | Consultation ---
Consult Note Consult Note asked to eval patient at the request of Dr Marino- Know to me from her previous admission- 84-year-old female with intermittent chest pressure times a week gradually worsening, patient was seen other doctors office, and sent to ED for evaluation aggravated with activity alleviated with rest severity is moderate, intermittent additionally patient reports that nitroglycerin helps as well as aspirin patient presents for evaluation she also endorses some shortness of breath No Known Allergies (Unverified , 08/12/17) Hx Hypertension: Yes Hx Diabetes: Yes History Of Psychiatric Problem: Yes examined data reviewed Assessment/Plan Renal failure Cr of 1.4- ? Chronic ( DM and HTN) h/o proteinuria / HypoAlbuminemia h/o UTI , h/o PAF with Bradycardic episodes Chest pain Anemia HTN Urine studies Anemia diaz Keep BP and BS in check monitor renal parameters 2D echo in Aug 2019: 65% Ejfx Renal BRI in Aug 2019- Non obstructive left kidney stone Kemar Miller MD Oct 08, 2019 09:35
--- NOTE | 2019-10-08 10:47 | Cardiac Electrophysiology PN ---
Subjective Subjective [id number] Objective Last 24 Hour Vital Signs Date Time Temp Pulse Resp B/P (MAP) Pulse Ox O2 Delivery O2 Flow Rate FiO2 10/08/19 10:22 131/69 10/08/19 09:00 49 131/69 10/08/19 08:48 Room Air 10/08/19 08:47 49 10/08/19 08:43 97.5 66 18 131/69 (89) 96 10/08/19 04:00 49 10/08/19 04:00 97.5 66 18 131/69 (89) 96 10/08/19 00:00 97.7 71 18 129/62 (84) 95 10/08/19 00:00 55 10/07/19 21:00 Room Air 10/07/19 20:00 60 10/07/19 20:00 97.9 63 18 136/58 (84) 97 10/07/19 16:55 98.0 71 19 123/61 95 Room Air 10/07/19 16:00 99.0 63 18 145/71 (95) 98 10/07/19 16:00 70 10/07/19 16:00 Room Air 10/07/19 13:01 117/58 10/07/19 12:53 98.2 66 19 137/77 93 Room Air 10/07/19 12:53 66 19 Room Air 10/07/19 12:45 98.2 66 19 137/77 (97) 93 Room Air Intake and Output 10/07/19 10/08/19 19:00 07:00 Intake Total 0 ml Balance 0 ml Intake Oral 0 ml # Voids 1 3 # Bowel Movements 1 Laboratory Tests Test 10/07/19 13:00 White Blood Count 6.9 K/UL (4.8-10.8) Red Blood Count 4.02 M/UL (4.20-5.40) L Hemoglobin 11.1 G/DL (12.0-16.0) L Hematocrit 33.7 % (37.0-47.0) L Mean Corpuscular Volume 84 FL (80-99) Mean Corpuscular Hemoglobin 27.6 PG (27.0-31.0) Mean Corpuscular Hemoglobin Concent 33.0 G/DL (32.0-36.0) Red Cell Distribution Width 13.8 % (11.6-14.8) Platelet Count 242 K/UL (150-450) Mean Platelet Volume 7.2 FL (6.5-10.1) Neutrophils (%) (Auto) 61.4 % (45.0-75.0) Lymphocytes (%) (Auto) 26.6 % (20.0-45.0) Monocytes (%) (Auto) 9.4 % (1.0-10.0) Eosinophils (%) (Auto) 1.1 % (0.0-3.0) Basophils (%) (Auto) 1.5 % (0.0-2.0) Prothrombin Time 11.0 SEC (9.30-11.50) Prothromb Time International Ratio 1.0 (0.9-1.1) Activated Partial Thromboplast Time 28 SEC (23-33) Sodium Level 142 MMOL/L (136-145) Potassium Level 3.7 MMOL/L (3.5-5.1) Chloride Level 106 MMOL/L (98-107) Carbon Dioxide Level 24 MMOL/L (21-32) Anion Gap 12 mmol/L (5-15) Blood Urea Nitrogen 18 mg/dL (7-18) Creatinine 1.4 MG/DL (0.55-1.30) H Estimat Glomerular Filtration Rate 35.8 mL/min (>60) Glucose Level 178 MG/DL (74-106) H Calcium Level 9.6 MG/DL (8.5-10.1) Total Bilirubin 0.4 MG/DL (0.2-1.0) Aspartate Amino Transf (AST/SGOT) 17 U/L (15-37) Alanine Aminotransferase (ALT/SGPT) 18 U/L (12-78) Alkaline Phosphatase 49 U/L (46-116) Troponin I 0.011 ng/mL (0.000-0.056) Pro-B-Type Natriuretic Peptide 402 pg/mL (0-125) H Total Protein 7.2 G/DL (6.4-8.2) Albumin 3.4 G/DL (3.4-5.0) Globulin 3.8 g/dL Albumin/Globulin Ratio 0.9 (1.0-2.7) L Lipase 189 U/L (73-393) Devon Lee MD Oct 08, 2019 10:47
[2019-10-08] MEDS ORDERED: Lexiscan 0.4mg/5ml syringe IV PRN (11:00)
[2019-10-08] MEDS ORDERED: Lexiscan 0.4mg/5ml syringe IV SCH (11:00)
[2019-10-08 11:06] LABS: BASOPHILS % (AUTO) 1.2 % (0.0-2.0); EOSINOPHILS % (AUTO) 2.3 % (0.0-3.0); HEMATOCRIT 32.2 % (37.0-47.0); HEMOGLOBIN 10.4 G/DL (12.0-16.0); LYMPHOCYTES % (AUTO) 33.7 % (20.0-45.0); MEAN CORPUSCULAR VOLUME 85 FL (80-99); MONOCYTES % (AUTO) 6.5 % (1.0-10.0); NEUTROPHILS % (AUTO) 56.4 % (45.0-75.0); PLATELET COUNT 212 K/UL (150-450); RED BLOOD COUNT 3.81 M/UL (4.20-5.40); WHITE BLOOD COUNT 5.8 K/UL (4.8-10.8)
[2019-10-08 11:09] LABS: ANION GAP 9 mmol/L (5-15); BLOOD UREA NITROGEN 18 mg/dL (7-18); CALCIUM 9.2 MG/DL (8.5-10.1); CARBON DIOXIDE 26 MMOL/L (21-32); CHLORIDE 106 MMOL/L (98-107); CREATININE 1.5 MG/DL (0.55-1.30); POTASSIUM 4.1 MMOL/L (3.5-5.1); SODIUM 141 MMOL/L (136-145)
[2019-10-08 11:25] LABS: ALANINE AMINOTRANSFERASE 15 U/L (12-78); ALBUMIN 3.2 G/DL (3.4-5.0); ALKALINE PHOSPHATASE 44 U/L (46-116); ASPARTATE AMINO TRANSFERASE 15 U/L (15-37); BILIRUBIN,TOTAL 0.3 MG/DL (0.2-1.0); CHOLESTEROL 176 MG/DL (< 200); FERRITIN 38 NG/ML (8-388); GAMMA GLUTAMYL TRANSPEPTIDASE 11 U/L (5-85); HDL CHOLESTEROL 52 MG/DL (40-60); PHOSPHORUS 3.6 MG/DL (2.5-4.9); TRIGLYCERIDES 132 MG/DL (30-150)
--- NOTE | 2019-10-08 11:25 | History & Physical ---
History and Physical History & Physicial IM H&P Covering for MD: Adelaida Marino RFA: chest pain DOS: 10/08/19 HPI 84 year old GRENADIAN SPEAKING (originally is from [facility]) presents with 1 days of intermittent chest pressure and weakness. She rates the pain 7/10 at this time. The pain does not radiate. She has dyspnea on exertion with some increased weakness. She has risk factors of hypertension, diabetes and heart disease. She has never undergone heart procedure. Her appetite is been poor. She has felt nauseated. History of paroxysmal atrial fibrillation. On Eliquis and amiodarone. Denies palpitations. When she was admitted in September 2017 she had an elevated troponin. Manager [employer] eval and nephro eval. She received nitroglycerin. She denies smoking. No fevers, chills, sore throat , vomiting, diarrhea, dysuria, abdominal pain, shortness of breath, joint pain, rashes, depression, anxiety, visual changes, dizziness, headache. She has been here before though I haven't seen her, to see cardiology, renal, and last adm at this time are noted, remains on eliquis. Discharge diagnoses from September 2017: 1. Elevated troponin, likely due to respiratory symptoms. 2. Acute bronchitis. 3. Bacteriuria. 4. Diabetes. 5. Hypertension. 6. Paroxysmal atrial fibrillation. 7. Elevated liver function tests. 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 [employer], she is Nursing Documentation-PMH Hx Cardiac Problems: Yes - A- Fib Hx Hypertension: Yes Hx Diabetes: Yes Hx Cancer: No Hx Gastrointestinal Problems: No Hx Neurological Problems: No ROS General: Denies fatigue, fever, chills, weight loss; + weakness with walking++ HENT: Denies oral sores, neck masses, nasal d/c, hearing problems Vison: Denies change in vision, eye pain, redness, discharge Cardiac: As above Pulmonary: As above GI: Denies heart burn, swallowing difficulty, abdominal pain, diarrhea, constipation : As per HPI Neuro: Denies seizure, weakness, numbness Endo: Denies heat/cold intolerance, weight changes, polyuria, polydipsia Heme/Onc: Denies unusual bleeding, bruising, clotting MSK: Denies join pain, swelling, muscle aches Mental Health: Denies anxiety, depression, mood changes PE: Vitals: reviewed General Appearance: NAD HEENT: normocephalic, atraumatic Neck: non-tender, normal alignment Respiratory/Chest: normal breath sounds bilaterally Cardiovascular/Chest: normal peripheral pulses, normal rate Abdomen: normal bowel sounds, soft, nontender Extremities: normal range of motion Labs: noted Imaging: to be reviewed Assessment and Recs: # Chest pain rule out acs, recurrent cp --> follows up with Dr. Champion as outpatient --> to see Dr. Lee here, nitro prn --> potential ischemia workup, stress test --> recs pending # Secondary hypercoagulable disorder, has a history of atrial fibrillation in the past --> consider as per cardiology eval --> given h/h, is okay to resume eliquis as per prior dose --> cards recs pending, will review, appreciated # Anemia of chronic disease due to underlying chronic medical issues, multifactorial v Gi bleed --> Anemia workup has been ordered, rule out gi bleed --> No evidence of hemolysis is noted, peripheral smear has been reviewed. --> Hgb goal >7. Transfuse prn. --> Epogen or iron at this time is not particularly indicated --> Medications have been reviewed --> low threshold for gi evaluation in case has occult + # Cayden - with dehydration --> s/p ivf which have been started --> goal of euvolemia --> as per Dr. Miller # Leukocytosis history --> now improved # Hyponatremia --> urine studies as per eval renal The timing of this note does not necessarily reflect the time of the patient was seen. Manuel Ivy MD Oct 08, 2019 11:25
[2019-10-08 12:00] VITALS: BP 129/63
[2019-10-08] MEDS: Docusate 100mg cap ORAL SCH ×2 (12:06→17:35)
[2019-10-08 12:09] LABS: % IRON SATURATION 17 % (15-50); IRON 47 ug/dL (50-175); TOTAL IRON BINDING CAPACITY 283 ug/dL (250-450)
[2019-10-08] MEDS: Atorvastatin 20mg tab ORAL SCH (15:23)
[2019-10-08 16:00] VITALS: BP 120/59
--- NOTE | 2019-10-08 17:15 | Consultation ---
DATE OF CONSULTATION: 10/08/2019 CARDIOLOGY CONSULTATION CONSULTING PHYSICIAN: Devon Lee M.D. REFERRING PHYSICIAN: Adelaida Frey M.D. REASON FOR CONSULTATION: Management of hypertension, chest pain, and paroxysmal atrial fibrillation. HISTORY OF PRESENT ILLNESS: The patient is an 84-year-old lady with history of hypertension, paroxysmal atrial fibrillation, and anemia, as well as diabetes, who was admitted to the hospital with intermittent chest pressure for a week. The patient was seen at doctor's office and sent to the emergency room for further evaluation. At the time of my evaluation, the patient denies any chest pain, palpitation, or shortness of breath. REVIEW OF SYSTEMS: Negative other than what was mentioned in history of present illness. PAST MEDICAL HISTORY: As mentioned above. FAMILY HISTORY: Noncontributory. SOCIAL HISTORY: She lives at home. Does not smoke or drink alcohol. MEDICATIONS: Per reconciliation, but includes Eliquis and sotalol as well as amlodipine and insulin. PHYSICAL EXAMINATION: VITAL SIGNS: Showed blood pressure 131/69, pulse 49, respirations 18, and she is afebrile. HEAD AND NECK: Showed no JVD or carotid bruit. LUNGS: Clear. CARDIOVASCULAR: Shows regular S1 and S2 with no gallop or murmur. ABDOMEN: Soft. EXTREMITIES: No pitting edema. LABORATORY AND DIAGNOSTIC DATA: Her EKG shows sinus rhythm with LVH and left axis deviation. Labs show white count of 6.9, hemoglobin 11, hematocrit 33, and platelet of 242,000. Sodium 142, potassium 3.7, BUN 18, and creatinine 1.4. Glucose of 178. Troponin is negative. BNP is 402. INR is 1. ASSESSMENT AND PLAN: 1. Paroxysmal atrial fibrillation, currently in sinus rhythm on sotalol 80 mg daily. Sotalol is a twice a day dosing decreased to 40 mg twice a day in view of renal failure, creatinine of 1.4. The patient is also on Eliquis 2.5 mg twice a day. 2. Hypertension, on sotalol and Norvasc 10 mg daily as well as Avapro 300 mg daily. 3. Atypical chest pain. The patient's first troponin is negative. Completely rule out myocardial infarction protocol and schedule the patient for a stress test for further evaluation. 4. Mild renal failure, creatinine 1.4. Further evaluation by Dr. Miller. 5. Diabetes, on insulin. Thank you very much, Dr. Frey, for allowing me to participate in the care of this patient. Please do not hesitate to contact me for any questions regarding my evaluation. Devon Lee M.D. DR: KUSHAL JOB#: [id number] CC:
[2019-10-08] MEDS: Sotalol 80mg tab ORAL SCH (17:33)
--- NOTE | 2019-10-08 18:19 | NUR ---
CASE MANAGEMENT: REVIEW 84 YEAR OLD FEMALE PRESENTED TO ED FROM HOME CC: CHEST PAIN X2 HOURS SI: ACS T 98.2 HR 66 RR 19 BP 117/58 SAT 93% ROOM AIR BNP 402 TROP 0.015 CXR -- NO ACUTE PROCESS IS: NITRO BID 1 INCH TOPICAL X1 ECHOCARDIOGRAM PENDING PATIENT ADMITTED TO TELEMETRY UNIT 10/07/2019 DCP: PATIENT IS FROM HOME
--- NOTE | 2019-10-08 19:15 | NUR ---
Received report from nurse Arely SUAREZ. Patient sitting on the chair and shows no signs of distress. Able to make needs known. Made aware of her plan of care. Monitor shows sinus rhythm. Will continue to monitor pt.
[2019-10-08 20:00] VITALS: BP 124/57
[2019-10-08] MEDS: Acetaminophen 500mg (ES) tab ORAL PRN (21:00)
[2019-10-09] VITALS: BP 131/58
--- NOTE | 2019-10-09 01:30 | NUR ---
HAND-OFF: Report given to Eliel SUAREZ. Endorsed plan of care..
[2019-10-09 04:00] VITALS: BP 130/72
[2019-10-09 04:21] LABS: CHOLESTEROL 173 MG/DL (< 200); HDL CHOLESTEROL 47 MG/DL (40-60); TRIGLYCERIDES 193 MG/DL (30-150)
[2019-10-09] MEDS: NovoLOG Insulin Flexpen SUBQ SCH ×3 (06:16→16:30)
--- NOTE | 2019-10-09 07:10 | NUR ---
HAND-OFF: Report given to DANIELA Smith. Endorsed plan of care
--- NOTE | 2019-10-09 07:50 | NUR ---
NURSE NOTES: Received report from DANIELA Julian. Patient in bed resting, no active s/s cardiac, respiratory distress noticed at this time. Patient AOx4, on room air. IV on right FA 22G, asymptomatic, patent, intact. Endorsed patient schedule for Lexiscan today, NPO since midnight. Will inform MD for elevated troponin. Bed in lowest position, side rails upx3, call light within reach. Will continue to monitor.
--- NOTE | 2019-10-09 07:51 | NUR ---
NURSE NOTES: Paged Dr. Lee regarding elevated troponin 0.099 today from 0.019 yesterday, no new order at this time. Dr. Ivy at the bedside made aware of troponin level, no new order. Will continue to monitor.
[2019-10-09 08:00] VITALS: BP 137/70
[2019-10-09] MEDS: Ascorbic Acid 500mg tab ORAL SCH (09:00)
[2019-10-09] MEDS: Irbesartan 150mg tablet ORAL SCH (09:00)
[2019-10-09] MEDS: Sotalol 80mg tab ORAL SCH ×2 (09:00→17:34)
[2019-10-09] MEDS: Glimepiride 4mg tab ORAL SCH (09:00)
--- NOTE | 2019-10-09 09:01 | Nephrology Progress Note ---
Assessment/Plan Problem List: (1) Renal failure (ARF), acute on chronic Assessment: GFR 33 (2) Diabetic nephropathy (3) Electrolyte imbalance (4) Hypertension (5) Anemia Assessment Renal failure Cr of 1.4- ? Chronic ( DM and HTN) h/o proteinuria / HypoAlbuminemia h/o UTI , h/o PAF with Bradycardic episodes Chest pain Anemia HTN Plan Urine studies Anemia diaz Keep BP and BS in check monitor renal parameters 2D echo in Aug 2019: 65% Ejfx Renal BRI in Aug 2019- Non obstructive left kidney stone Subjective ROS Limited/Unobtainable: No Constitutional: Reports: malaise Objective Objective Last 24 Hour Vital Signs Date Time Temp Pulse Resp B/P (MAP) Pulse Ox O2 Delivery O2 Flow Rate FiO2 10/09/19 08:00 97.7 64 18 137/70 (92) 97 10/09/19 04:00 97.0 56 18 130/72 (91) 95 10/09/19 04:00 56 10/09/19 00:00 97.4 59 18 131/58 (82) 94 10/09/19 00:00 59 10/08/19 21:00 Room Air 10/08/19 20:50 60 124/57 10/08/19 20:00 63 10/08/19 20:00 97.9 60 18 124/57 (79) 94 10/08/19 17:33 56 120/59 10/08/19 16:00 98.3 56 20 120/59 (79) 98 10/08/19 16:00 65 10/08/19 12:00 97.5 56 20 129/63 (85) 95 10/08/19 12:00 52 10/08/19 10:22 131/69 Intake and Output 10/08/19 10/09/19 19:00 07:00 Intake Total 800 ml Balance 800 ml Intake Oral 800 ml # Voids 4 3 # Bowel Movements 1 1 Laboratory Tests 10/08/19 10:10: White Blood Count 5.8, Red Blood Count 3.81L, Hemoglobin 10.4L, Hematocrit 32.2L , Mean Corpuscular Volume 85, Mean Corpuscular Hemoglobin 27.3, Mean Corpuscular Hemoglobin Concent 32.3, Red Cell Distribution Width 14.0, Platelet Count 212, Mean Platelet Volume 7.7, Neutrophils (%) (Auto) 56.4, Lymphocytes (% ) (Auto) 33.7, Monocytes (%) (Auto) 6.5, Eosinophils (%) (Auto) 2.3, Basophils ( %) (Auto) 1.2, Sodium Level 141, Potassium Level 4.1, Chloride Level 106, Carbon Dioxide Level 26, Anion Gap 9, Blood Urea Nitrogen 18, Creatinine 1.5H, Estimat Glomerular Filtration Rate 33.0, Glucose Level 134H, Hemoglobin A1c 6.0 , Uric Acid 5.2, Calcium Level 9.2, Phosphorus Level 3.6, Magnesium Level 2.0, Iron Level 47L, Total Iron Binding Capacity 283, Percent Iron Saturation 17, Unsaturated Iron Binding 236, Ferritin 38, Total Bilirubin 0.3, Gamma Glutamyl Transpeptidase 11, Aspartate Amino Transf (AST/SGOT) 15, Alanine Aminotransferase (ALT/SGPT) 15, Alkaline Phosphatase 44L, Troponin I 0.015, C- Reactive Protein, Quantitative < 0.4, Pro-B-Type Natriuretic Peptide 317H, Total Protein 6.5, Albumin 3.2L, Globulin 3.3, Albumin/Globulin Ratio 1.0, Triglycerides Level 132, Cholesterol Level 176, LDL Cholesterol 102H, HDL Cholesterol 52, Cholesterol/HDL Ratio 3.4, Vitamin B12 Level 659, Folate 60.8H, Thyroid Stimulating Hormone (TSH) 1.228 10/08/19 19:20: Troponin I 0.019 10/09/19 03:23: Troponin I 0.099H, Pro-B-Type Natriuretic Peptide 245H, Triglycerides Level 193H , Cholesterol Level 173, LDL Cholesterol 98, HDL Cholesterol 47, Cholesterol/ HDL Ratio 3.7 Height (Feet): 5 Height (Inches): 1.00 Weight (Pounds): 177 General Appearance: no apparent distress Cardiovascular: normal rate Respiratory/Chest: decreased breath sounds Abdomen: soft Kemar Miller MD Oct 09, 2019 09:01
[2019-10-09] MEDS: Vitamin D 1000 IU Tab ORAL SCH (09:20)
[2019-10-09] MEDS: Magnesium Oxide 400mg tab ORAL SCH (09:20)
[2019-10-09] MEDS: Docusate 100mg cap ORAL SCH ×3 (09:20→17:33)
[2019-10-09] MEDS: Eliquis 2.5mg tablet ORAL SCH ×2 (09:20→17:34)
--- NOTE | 2019-10-09 11:15 | General Progress Note ---
Assessment/Plan Status: stable Assessment/Plan: IM PROGRESS NOTE COVERING FOR DR. COSTA Assessment and Recs: # Chest pain rule out acs, recurrent cp --> follows up with Dr. Champion as outpatient --> to see Dr. Lee here, nitro prn --> potential ischemia workup, stress test --> recs pending --> trop 0.099 --> 10/07 venous duplex negative # Secondary hypercoagulable disorder, has a history of atrial fibrillation in the past --> consider as per cardiology eval --> given h/h, is okay to resume eliquis as per prior dose --> cards recs pending, will review, appreciated # Anemia of chronic disease due to underlying chronic medical issues, multifactorial v Gi bleed --> Anemia workup has been ordered, rule out gi bleed --> No evidence of hemolysis is noted, peripheral smear has been reviewed. --> Hgb goal >7. Transfuse prn. --> Epogen or iron at this time is not particularly indicated --> Medications have been reviewed --> low threshold for gi evaluation in case has occult + # Cayden - with dehydration --> s/p ivf which have been started --> goal of euvolemia --> as per Dr. Miller # Leukocytosis history --> now improved # Hyponatremia --> urine studies as per eval renal The timing of this note does not necessarily reflect the time of the patient was seen. Subjective Allergies: Coded Allergies: No Known Allergies (Unverified , 08/12/17) Subjective 10/09: alert, trop 0.00, no new orders, venous duplex negative Objective Last 24 Hour Vital Signs Date Time Temp Pulse Resp B/P (MAP) Pulse Ox O2 Delivery O2 Flow Rate FiO2 10/09/19 09:00 64 137/70 10/09/19 09:00 137/70 10/09/19 08:00 97.7 64 18 137/70 (92) 97 10/09/19 04:00 97.0 56 18 130/72 (91) 95 10/09/19 04:00 56 10/09/19 00:00 97.4 59 18 131/58 (82) 94 10/09/19 00:00 59 10/08/19 21:00 Room Air 10/08/19 20:50 60 124/57 10/08/19 20:00 63 10/08/19 20:00 97.9 60 18 124/57 (79) 94 10/08/19 17:33 56 120/59 10/08/19 16:00 98.3 56 20 120/59 (79) 98 10/08/19 16:00 65 10/08/19 12:00 97.5 56 20 129/63 (85) 95 10/08/19 12:00 52 Intake and Output 10/08/19 10/09/19 19:00 07:00 Intake Total 800 ml Balance 800 ml Intake Oral 800 ml # Voids 4 3 # Bowel Movements 1 1 Laboratory Tests 10/08/19 19:20: Troponin I 0.019 10/09/19 03:23: Troponin I 0.099H, Pro-B-Type Natriuretic Peptide 245H, Triglycerides Level 193H , Cholesterol Level 173, LDL Cholesterol 98, HDL Cholesterol 47, Cholesterol/ HDL Ratio 3.7 Height (Feet): 5 Height (Inches): 1.00 Weight (Pounds): 177 Objective PE: Vitals: reviewed General Appearance: NAD HEENT: normocephalic, atraumatic Neck: non-tender, normal alignment Respiratory/Chest: normal breath sounds bilaterally Cardiovascular/Chest: normal peripheral pulses, normal rate Abdomen: normal bowel sounds, soft, nontender Extremities: normal range of motion Manuel Ivy MD Oct 09, 2019 11:15
[2019-10-09 12:00] VITALS: BP 117/63
[2019-10-09] MEDS ORDERED: Lexiscan 0.4mg/5ml syringe IV PRN (12:15)
[2019-10-09] MEDS: Acetaminophen 500mg (ES) tab ORAL PRN (12:29)
--- NOTE | 2019-10-09 12:50 | NUR ---
NURSE NOTES: Patient AOX4, educated to urinate in the hat provided for UA.
--- NOTE | 2019-10-09 15:50 | Diagnostic Imaging Report ---
Indications: 84-year-old female with chest pain Technique: Single day single isotope protocol utilized. Initially, resting images obtained using IV administration 11 millicuries 99M technetium Myoview. Subsequently, patient underwent lexiscan stress testing. See cardiology report for details. During Lexiscan infusion, IV administration 31.7 mCi 99 M technetium Myoview. SPECT and planar images obtained. SPECT images gated to 8 phases of the cardiac cycle were also obtained, and reformatted into cine images for evaluation of ejection fraction. Comparison: 09/11/2019 resting only study Findings: Per cardiology report, patient experienced chest pressure during infusion. Per cardiology report, resting EKG demonstrates sinus bradycardia with nonspecific ST-T wave abnormality. 0.[address] depression was noted in the lateral leads during infusion. . Imaging demonstrates equivocally slightly decreased perfusion in the inferolateral wall near the apex which is present on the post stress and the resting images, and is not significant change. This is also evident on the previous stress only study. No reversible post stress perfusion defects are evident. Normal left ventricular chamber size Calculated post stress ejection fraction 79%. No evidence of focal wall motion abnormality Impression: Nonischemic clinical response to pharmacologic stress, per cardiology report Nonischemic electrocardiographic response to pharmacologic stress, per cardiology report Apparent fixed inferolateral defect near the apex. Suspect that this represents soft tissue attenuation artifact rather than an infarct, given supranormal ejection fraction and lack of wall motion abnormality. Negative for ischemia, at level of stress achieved Calculated post stress ejection fraction greater than 70%
[2019-10-09 16:00] VITALS: BP 128/70
--- NOTE | 2019-10-09 16:29 | Cardiac Electrophysiology PN ---
Assessment/Plan Status Narrative Apparent fixed inferolateral defect near the apex. Suspect that this represents soft tissue attenuation artifact rather than an infarct, given supranormal ejection fraction and lack of wall motion abnormality. Negative for ischemia, at level of stress achieved Assessment/Plan 1. Paroxysmal atrial fibrillation, currently in sinus rhythm on sotalol 40 mg bid . The patient is also on Eliquis 2.5 mg twice a day. 2. Hypertension, on sotalol and Norvasc 10 mg daily as well as Avapro 300 mg daily. 3. Atypical chest pain. Completely ruled out for myocardial infarction protocol Stress test showed no ischemia 4. Mild renal failure, creatinine 1.4. Further evaluation by Dr. Miller. 5. Diabetes, on insulin. DW RN Subjective Subjective Had nuclear stress test today.No CP or SOB. In SR Objective Last 24 Hour Vital Signs Date Time Temp Pulse Resp B/P (MAP) Pulse Ox O2 Delivery O2 Flow Rate FiO2 10/09/19 12:00 58 10/09/19 12:00 97.9 60 18 117/63 (81) 98 10/09/19 09:00 Room Air 10/09/19 09:00 64 137/70 10/09/19 09:00 137/70 10/09/19 08:00 60 10/09/19 08:00 97.7 64 18 137/70 (92) 97 10/09/19 04:00 97.0 56 18 130/72 (91) 95 10/09/19 04:00 56 10/09/19 00:00 97.4 59 18 131/58 (82) 94 10/09/19 00:00 59 10/08/19 21:00 Room Air 10/08/19 20:50 60 124/57 10/08/19 20:00 63 10/08/19 20:00 97.9 60 18 124/57 (79) 94 10/08/19 17:33 56 120/59 Intake and Output 10/08/19 10/09/19 19:00 07:00 Intake Total 800 ml Balance 800 ml Intake Oral 800 ml # Voids 4 3 # Bowel Movements 1 1 Laboratory Tests Test 10/08/19 19:20 10/09/19 03:23 Troponin I 0.019 ng/mL (0.000-0.056) 0.099 ng/mL (0.000-0.056) Pro-B-Type Natriuretic Peptide 245 pg/mL (0-125) H Triglycerides Level 193 MG/DL (30-150) H Cholesterol Level 173 MG/DL (< 200) LDL Cholesterol 98 mg/dL (<100) HDL Cholesterol 47 MG/DL (40-60) Cholesterol/HDL Ratio 3.7 (3.3-4.4) Microbiology Date/Time Source Procedure Growth Status 10/07/19 15:25 Nasal Nares MRSA Culture - Final NO METHICILLIN RESISTANT STAPH AUREUS... Complete 10/07/19 15:25 Rectum - Final NO CARBAPENEM-RESISTANT ENTEROBACTERI... Complete 10/07/19 15:25 Rectum VRE Culture - Final NO VANCOMYCIN RESISTANT ENTEROCOCCUS ... Complete Objective HEAD AND NECK: Showed no JVD or carotid bruit. LUNGS: Clear. CARDIOVASCULAR: Shows regular S1 and S2 with no gallop or murmur. ABDOMEN: Soft. EXTREMITIES: No pitting edema. Devon eLe MD Oct 09, 2019 16:29
[2019-10-09 17:34] VITALS: BP 128/70
--- NOTE | 2019-10-09 18:03 | NUR ---
NURSE NOTES: Paged Dr. Ivy, patient cleared from cardiology standpoint. Per MD, discharge patient home with home med, no change at this time. made aware Dr. Lee recommend to change Sotalol 80mg daily to 40mg BID. Per Dr. Ivy, change as recommended. Patient educated for medication , dosage changes, side effects.
[2019-10-09] MEDS ORDERED: SOTALOL80 M1 ORAL (18:15)
--- NOTE | 2019-10-09 18:45 | NUR ---
NURSE NOTES: Patient discharged to home. Patient given education regard medication, s/s to report to primary MD. Patient discharged via private vehicle with Son. surveillance system monitor returned to security monitor, IV removed, ID removed and placed in shredder. Patient discharged with all belongings in a stable condition.
--- NOTE | 2019-10-11 21:52 | Discharge Summary ---
Discharge Summary Discharge Summary _ DATE OF ADMISSION: 10/07/2019 DATE OF DISCHARGE: 10/09/2019 DISCHARGED BY: Dr. Marino REASON FOR ADMISSION: 84 years old female with past medical history of hypertension, diabetes mellitus , psychiatric disorder, presented with intermittent chest pressure over the last week with gradually worsening symptoms. Patient was seen the doctor's office and sent to emergency department for further evaluation and management. Patient described chest pressure is moderate in intensity, intermittent. Patient also reported some shortness of breath . Upon evaluation vital signs were stable . Laboratory work-up revealed no leukocytosis , mild anemia hemoglobin 11.1 , hematocrit 33.7. Stable electrolytes. BUN 18, creatinine 1.4. Glucose 178. Troponin - 0.011. pro BNP 402. EKG revealed sinus rhythm, no acute ischemic changes. Left axis deviation. Chest x-ray revealed no acute cardiopulmonary pathology. Patient received aspirin , nitroglycerin and admitted to rule out acute coronary syndrome. CONSULTANTS: geotechnical intern Dr. Villafana district manager postal service Dr. Miller relay adjuster/oncologist Dr. Ivy [facility] COURSE: Patient admitted to telemetry floor. Serial troponin revealed first 3- troponin negative, last minimally elevated 0.099. EKG revealed no acute ischemic changes. Patient was ruled out for acute myocardial infarction. Venous duplex bilateral lower extremity revealed no evidence of acute DVT. Myocardial perfusion scan was nonischemic with calculated poststress ejection fraction greater than 70%. Blood pressure was managed with beta-sonia , calcium channel sonia and angiotensin receptor sonia. Per geotechnical intern, chest pain was atypical. Nitroglycerin provided as needed. Patient demonstrated episode of paroxysmal atrial fibrillation, spontaneously converted to sinus rhythm. Sotalol 40 mg twice daily continued. Patient was continued with anticoagulation with Eliquis 2.5 mg twice a day. Urine studies were done. Renal parameters were closely monitored . Nephrotoxic's were avoided. Renal ultrasound in August 2019 was nonobstructive . Echocardiogram in August 2019 revealed preserved ejection fraction 65%. Statin continued. Blood sugar was managed with Amaryl. GI prophylaxis provided. Hemoglobin and hematocrit were closely monitored with goal to keep hemoglobin above 7. Prior to discharge hemoglobin 10.4, hematocrit 32.2. Anemia work-up revealed evidence of anemia of chronic disease. No evidence of hemolysis was noted. Patient clinically stabilized and was ready for discharge home. FINAL DIAGNOSES: Atypical chest pain Paroxysmal atrial fibrillation Hypertension Diabetes mellitus Renal failure , acute on chronic Diabetic nephropathy Anemia of chronic disease DISCHARGE MEDICATIONS: See Medication Reconciliation list. DISCHARGE INSTRUCTIONS: Patient was discharged home. Follow-up with a primary care provider in 1 week. I have been assigned to dictate discharge summary for this account. I was not involved in the patient's management. Peace Markham NP Oct 11, 2019 21:52
--- NOTE | 2019-10-21 09:03 | Coder Physician Query ---
Clarification is required for compliance, coding accuracy, and to reflect severity of illness for this patient Dear Dr. EMMY COSTA Date: 10/21/2019 Station Engineer Main Line/CDS' Name: [facility]SE: Serial troponin revealed first 3- troponin negative, last minimally elevated 0.099. EKG revealed no acute ischemic changes. Patient was ruled out for acute myocardial infarction. Venous duplex bilateral lower extremity revealed no evidence of acute DVT. Myocardial perfusion scan was nonischemic with calculated poststress ejection fraction greater than 70%. Blood pressure was managed with beta-sonia , calcium channel sonia and angiotensin receptor sonia. Per homogenizer operator, chest pain was atypical. FINAL DIAGNOSES: Atypical chest pain Please document the suspected etiology of Chest Pain: [] Acute Coronary Syndrome [] Pericarditis [] Anxiety [] Cancer [] Pneumonia [] Costochondritis [] Pneumothorax [] GERD/Esophagitis [] Pulmonary embolism [] Other: [] Unable to determine EMMY COSTA M.D. Date Please also document in your Progress Notes and/or Discharge Summary and indicate if the condition was present on admission. ALISA
== END 2019-10-09 18:58 | disposition home or self-care (01) | DRG 313 ==
LOC: EDBD 12:53 → EMR 13:25 → 2E 13:41 → EDBEDREQ 14:30
DX: R07.89 Other chest pain (principal); E87.1 Hypo-osmolality and hyponatremia; N17.9 Acute kidney failure, unspecified; D68.69 Other thrombophilia; I10 Essential (primary) hypertension; D63.8 Anemia in other chronic diseases classified elsewhere; I48.0 Paroxysmal atrial fibrillation; Z79.01 Long term (current) use of anticoagulants; Z79.4 Long term (current) use of insulin; I12.9 Hypertensive chronic kidney disease with stage 1 through stage 4 chronic kidney disease, or unspecified chronic kidney disease; E11.22 Type 2 diabetes mellitus with diabetic chronic kidney disease; N18.9 Chronic kidney disease, unspecified; E86.0 Dehydration
CPT/HCPCS: 36415; 71045; 78452; 80053; 80061; 82607; 82728; 82746; 82962; 82977; 83036; 83540; 83550; 83690; 83735; 83880; 84100; 84443; 84484; 84550; 85025; 85610; 85730; 86140; 87081; 93005; 93017; 93970; 99285; J1815; J2785